=== PATIENT | female | born 1945 | race Caucasian/White ===

== ENCOUNTER 2017-10-01 00:28 | Day surgery (SDC) | payer MEDICARE, OTHER, SELFPAY ==
[~2017-10-01 00:28] MED LIST: ACET325 PO; ALBU.083IS IH; ALBU3IS INH; ALBU90OI INH; ALPR1; AMLO5 PO; ASPI325 PO; ASPI81CH PO; ASPI81EC PO; ATOR10; ATOR10 PO; AVINZA PO; AZIT500 PO; Arava10 MG PO; Aspercreme 1035.4 GM TOP; Aspir 8181 MG PO; BENADRYL25 MG PO; BENZ100A PO; BISA5EC PO; CALCAVITD PO; CALCIT950 PO; CALCIUM 600 +1 EAC5 PO; CARB200 PO; CARV3.125 PO; CARV6.25 PO; CEPH500 PO; CETI10; CETI10 PO; CHOL10002 PO; CIPR500 PO; CONEST1.25 PO; CONSTULOSE PO; CYCL10; CYCL10 PO; DESV50; DESV50 PO; DEXL60CA3 PO; DOCU100; DOCU100 PO; EFFEXOR; FAMO20 PO; FLUSAL5005 IH; FURO20 PO; FURO40 PO; FURO80 PO; Flonase 0.05% N16 GM; HUMIRA; HYDACE10B; HYDACE10B PO; HYDACE5; HYDACE7.5; HYDHOMSY PO; HYDMOR4; HYDMOR8 PO; IPRAIS NEB; IPRAOI INH; ISOMON20; ISOMON30 PO; Isosorbide Mono30 MG PO; KAPIDEX; KAPIDEX PO; LANS30EC; LANS30EC PO; LAVAP17G PO; LEFL20 PO; LEUC5; LEUC5 PO; LEVA1.25; LEVSOD100; LEVSOD112 PO; LEVSOD125 PO; LEVSOD88; LEVSOD88 PO; LIOT25; LIOT25 PO; LORA1; LOSA50; LOSA50 PO; MAGCIT300 PO; MELATONIN10 MG PO; MELO7.5 PO; MEPE50; METHOTREXATE; METO10 PO; METR500 PO; METTREX2.5; MONT10T PO; MORP30 PO; MORP30ER PO; MORP60ER PO; MOVANTIK25 MG PO; Milk Of Ma400 MG/5 M PO; NIFE30ER; NIFE30ER PO; NIFE60ER PO; NITR.4SL; NITR.4SL SL; NITR100CA PO; Norco 10-325 T1 EACH PO; ONDA4ODT PO; ONDA8 PO; ONDA8ODT MM; OXYACE5T PO; OXYC20ER PO; OXYC5 PO; OXYGEN 2L AT NIGHT; POLY17UD PO; POTA10T PO; POTASSIUM; POTCHL10ER PO; POTCHL20ER PO; PRAM.125; PRAM.125 PO; PRAV20 PO; PRED10 PO; PRED20 PO; PRED5 PO; PROM25 PO; PSEU120ER PO; RELISTOR8 MG/0.4 M SQ; REMACADE; REMICADE; RXHYDMOR2 PO; RXONDA4ODT MM; RXPROM25 PO; RXTRAM50 PO; Remicade100 MG IV; SPIR25; SPIR25 PO; SPIR50 PO; SULTRIDS PO; Synthroid112 MCG PO; Synthroid25 MCG PO; TRIE10TC TOP; Tegretol Xr400 MG PO; VENL150ER PO; VENL75; VITAMIN D35000 UNI1 PO; Ventolin Soln3 ML INH; Ventolin5 MG/1 ML IH; Zithromax250 MG PO; Zofran Odt4 MG PO; [UNRECOGNIZED DRUG - OTHER]; [UNRECOGNIZED DRUG - OTHER]; [UNRECOGNIZED DRUG - OTHER]; [UNRECOGNIZED DRUG - OTHER] PO; [UNRECOGNIZED DRUG - OTHER] PO
[2017-10-01 14:05] LABS: BASOPHILS ABSOLUTE AUTO 0.02 K/mm3 (0.00-0.23); BASOPHILS PERCENT AUTO 0 % (0-2); EOSINOPHILS ABSOLUTE AUTO 0.24 K/mm3 (0.00-0.68); EOSINOPHILS PERCENT AUTO 4 % (0-6); Hematocrit 35.5 % (33.0-51.0); Hemoglobin 11.7 g/dL (11.5-16.0); IMMATURE GRAN ABSOLUTE AUTO 0.01 K/mm3 (0.00-0.10); IMMATURE GRAN PERCENT AUTO 0 % (0-1); LYMPHOCYTES ABSOLUTE AUTO 1.75 K/mm3 (0.84-5.20); LYMPHOCYTES PERCENT AUTO 27 % (21-46); MONOCYTES ABSOLUTE AUTO 0.54 K/mm3 (0.16-1.47); MONOCYTES PERCENT AUTO 8 % (4-13); Mean Corpuscular HGB 31.5 pg (26.0-34.0); Mean Corpuscular Volume 96 fL (80-100); Mean Platelet Volume 9.3 fL (9.1-12.4); NEUTROPHILS ABSOLUTE AUTO 3.93 K/mm3 (1.96-9.15); NEUTROPHILS PERCENT AUTO 61 % (41-73); Platelet Count 225 K/mm3 (150-400); RDW Coefficient Variation 12.8 % (11.7-14.2); RDW Standard Deviation 44.7 fL (35.1-46.3); Red Blood Cell Count 3.71 M/mm3 (3.80-5.20); White Blood Cell Count 6.49 K/mm3 (4.00-11.30)
[2017-10-10] MEDS ORDERED: CITRATE OF MAG296 ML PO
== END 2017-10-01 15:47 | disposition home or self-care (01) ==
LOC: ATC 00:28
PROVIDERS: Internal Medicine Rheumatology
DX: M06.9 Rheumatoid arthritis, unspecified (principal); F32.9 Major depressive disorder, single episode, unspecified; E78.5 Hyperlipidemia, unspecified; I10 Essential (primary) hypertension; E03.9 Hypothyroidism, unspecified; J45.909 Unspecified asthma, uncomplicated; G47.33 Obstructive sleep apnea (adult) (pediatric); E66.01 Morbid (severe) obesity due to excess calories; I25.10 Atherosclerotic heart disease of native coronary artery without angina pectoris
CPT/HCPCS: 84450; 85025; 85651; 96413; J1642; J7050; Q5102-ZB

== ENCOUNTER 2017-10-10 23:08 | Emergency (ER) | payer MEDICARE, OTHER, SELFPAY ==
[~2017-10-10] VITALS: Ht 154.9 cm; Wt 113.4 kg
[~2017-10-10 23:08] MED LIST changes: +CITRATE OF MAG296 ML PO
== END 2017-10-11 00:45 | disposition home or self-care (01) ==
LOC: ER 23:08
DX: K59.00 Constipation, unspecified (principal); I11.0 Hypertensive heart disease with heart failure; I50.9 Heart failure, unspecified; E03.9 Hypothyroidism, unspecified; J44.9 Chronic obstructive pulmonary disease, unspecified; E66.01 Morbid (severe) obesity due to excess calories; Z87.891 Personal history of nicotine dependence; Z88.0 Allergy status to penicillin; Z88.5 Allergy status to narcotic agent; Z88.1 Allergy status to other antibiotic agents; Z88.2 Allergy status to sulfonamides; Z79.899 Other long term (current) drug therapy; Z79.82 Long term (current) use of aspirin
CPT/HCPCS: 99283

== ENCOUNTER 2017-10-29 00:37 | Day surgery (SDC) | payer MEDICARE, OTHER ==
[2017-10-29 14:24] LABS: BASOPHILS ABSOLUTE AUTO 0.07 K/mm3 (0.00-0.23); BASOPHILS PERCENT AUTO 1 % (0-2); EOSINOPHILS ABSOLUTE AUTO 0.24 K/mm3 (0.00-0.68); EOSINOPHILS PERCENT AUTO 4 % (0-6); Hematocrit 37.1 % (33.0-51.0); IMMATURE GRAN ABSOLUTE AUTO 0.01 K/mm3 (0.00-0.10); IMMATURE GRAN PERCENT AUTO 0 % (0-1); LYMPHOCYTES ABSOLUTE AUTO 2.05 K/mm3 (0.84-5.20); LYMPHOCYTES PERCENT AUTO 30 % (21-46); MONOCYTES ABSOLUTE AUTO 0.67 K/mm3 (0.16-1.47); MONOCYTES PERCENT AUTO 10 % (4-13); Mean Corpuscular HGB 30.8 pg (26.0-34.0); Mean Corpuscular HGB Conc 32.3 g/dL (31.5-36.5); Mean Corpuscular Volume 95 fL (80-100); Mean Platelet Volume 9.4 fL (9.1-12.4); NEUTROPHILS ABSOLUTE AUTO 3.73 K/mm3 (1.96-9.15); NEUTROPHILS PERCENT AUTO 55 % (41-73); Platelet Count 225 K/mm3 (150-400); RDW Coefficient Variation 12.1 % (11.7-14.2); RDW Standard Deviation 42.3 fL (35.1-46.3); Red Blood Cell Count 3.89 M/mm3 (3.80-5.20); White Blood Cell Count 6.77 K/mm3 (4.00-11.30)
== END 2017-10-29 15:56 | disposition home or self-care (01) ==
LOC: ATC 00:37
PROVIDERS: Internal Medicine Rheumatology
DX: M06.9 Rheumatoid arthritis, unspecified (principal); M05.10 Rheumatoid lung disease with rheumatoid arthritis of unspecified site; F32.9 Major depressive disorder, single episode, unspecified; E78.5 Hyperlipidemia, unspecified; E03.9 Hypothyroidism, unspecified; J45.909 Unspecified asthma, uncomplicated; E66.01 Morbid (severe) obesity due to excess calories; G47.33 Obstructive sleep apnea (adult) (pediatric); I25.10 Atherosclerotic heart disease of native coronary artery without angina pectoris; I11.0 Hypertensive heart disease with heart failure; I50.9 Heart failure, unspecified
CPT/HCPCS: 84450; 85025; 85651; 96413; 96415; J1642; J7050; Q5102-ZB

== ENCOUNTER 2017-11-24 00:19 | Day surgery (SDC) | payer MEDICARE, SELFPAY ==
[2017-11-24 14:14] LABS: BASOPHILS ABSOLUTE AUTO 0.05 K/mm3 (0.00-0.23); BASOPHILS PERCENT AUTO 1 % (0-2); EOSINOPHILS ABSOLUTE AUTO 0.36 K/mm3 (0.00-0.68); EOSINOPHILS PERCENT AUTO 5 % (0-6); Hemoglobin 11.8 g/dL (11.5-16.0); IMMATURE GRAN ABSOLUTE AUTO 0.03 K/mm3 (0.00-0.10); IMMATURE GRAN PERCENT AUTO 0 % (0-1); LYMPHOCYTES ABSOLUTE AUTO 1.96 K/mm3 (0.84-5.20); LYMPHOCYTES PERCENT AUTO 26 % (21-46); MONOCYTES ABSOLUTE AUTO 0.77 K/mm3 (0.16-1.47); MONOCYTES PERCENT AUTO 10 % (4-13); Mean Corpuscular HGB 30.4 pg (26.0-34.0); Mean Corpuscular HGB Conc 31.9 g/dL (31.5-36.5); Mean Corpuscular Volume 95 fL (80-100); NEUTROPHILS PERCENT AUTO 58 % (41-73); Platelet Count 222 K/mm3 (150-400); RDW Coefficient Variation 12.1 % (11.7-14.2); RDW Standard Deviation 42.3 fL (35.1-46.3); Red Blood Cell Count 3.88 M/mm3 (3.80-5.20); White Blood Cell Count 7.57 K/mm3 (4.00-11.30)
== END 2017-11-24 15:54 | disposition home or self-care (01) ==
LOC: ATC 00:19
PROVIDERS: Internal Medicine Rheumatology
DX: M06.9 Rheumatoid arthritis, unspecified (principal); M05.10 Rheumatoid lung disease with rheumatoid arthritis of unspecified site; F32.9 Major depressive disorder, single episode, unspecified; E78.5 Hyperlipidemia, unspecified; E03.9 Hypothyroidism, unspecified; J45.909 Unspecified asthma, uncomplicated; I11.0 Hypertensive heart disease with heart failure; I50.30 Unspecified diastolic (congestive) heart failure
CPT/HCPCS: 84450; 85025; 85651; 96413; J1642; J7050; Q5102-ZB

== ENCOUNTER 2017-12-22 00:25 | Day surgery (SDC) | payer MEDICARE, SELFPAY ==
[2017-12-22 15:04] LABS: BASOPHILS ABSOLUTE AUTO 0.06 K/mm3 (0.00-0.23); BASOPHILS PERCENT AUTO 1 % (0-2); EOSINOPHILS ABSOLUTE AUTO 0.29 K/mm3 (0.00-0.68); EOSINOPHILS PERCENT AUTO 4 % (0-6); Hemoglobin 11.9 g/dL (11.5-16.0); IMMATURE GRAN ABSOLUTE AUTO 0.01 K/mm3 (0.00-0.10); IMMATURE GRAN PERCENT AUTO 0 % (0-1); LYMPHOCYTES ABSOLUTE AUTO 2.01 K/mm3 (0.84-5.20); LYMPHOCYTES PERCENT AUTO 29 % (21-46); MONOCYTES ABSOLUTE AUTO 0.71 K/mm3 (0.16-1.47); MONOCYTES PERCENT AUTO 10 % (4-13); Mean Corpuscular HGB 30.8 pg (26.0-34.0); Mean Corpuscular HGB Conc 32.2 g/dL (31.5-36.5); Mean Corpuscular Volume 96 fL (80-100); Mean Platelet Volume 9.7 fL (9.1-12.4); NEUTROPHILS ABSOLUTE AUTO 3.96 K/mm3 (1.96-9.15); NEUTROPHILS PERCENT AUTO 56 % (41-73); Platelet Count 248 K/mm3 (150-400); RDW Coefficient Variation 12.8 % (11.7-14.2); Red Blood Cell Count 3.86 M/mm3 (3.80-5.20); White Blood Cell Count 7.04 K/mm3 (4.00-11.30)
== END 2017-12-22 16:19 | disposition home or self-care (01) ==
LOC: ATC 00:25
PROVIDERS: Internal Medicine Rheumatology
DX: M06.9 Rheumatoid arthritis, unspecified (principal); M05.10 Rheumatoid lung disease with rheumatoid arthritis of unspecified site; E78.5 Hyperlipidemia, unspecified; F32.9 Major depressive disorder, single episode, unspecified; I10 Essential (primary) hypertension; E03.9 Hypothyroidism, unspecified; E66.01 Morbid (severe) obesity due to excess calories
CPT/HCPCS: 84450; 85025; 85651; 96413; 96415; J1642; J7050; Q5103

== ENCOUNTER 2018-01-28 09:37 | Day surgery (SDC) | payer MEDICARE ==
[~2018-01-28] VITALS: Ht 154.9 cm; Wt 114.1 kg
== END 2018-01-28 12:29 | disposition home or self-care (01) ==
LOC: ORSCSDS 09:37
PROVIDERS: Internal Medicine Gastroenterology
PROC: 0DBL8ZX Excision of Transverse Colon, Via Natural or Artificial Opening Endoscopic, Diagnostic (ICD-10-PCS; principal; 2018-01-28 11:00)
DX: Z86.010 Personal history of colon polyps (principal); K62.5 Hemorrhage of anus and rectum; D12.3 Benign neoplasm of transverse colon; K57.30 Diverticulosis of large intestine without perforation or abscess without bleeding; K64.8 Other hemorrhoids; I10 Essential (primary) hypertension; E03.9 Hypothyroidism, unspecified; K21.9 Gastro-esophageal reflux disease without esophagitis; G47.33 Obstructive sleep apnea (adult) (pediatric); J44.9 Chronic obstructive pulmonary disease, unspecified; I25.10 Atherosclerotic heart disease of native coronary artery without angina pectoris; Z87.891 Personal history of nicotine dependence; E66.01 Morbid (severe) obesity due to excess calories; Z68.42 Body mass index [BMI] 45.0-49.9, adult; Z79.82 Long term (current) use of aspirin; Z79.899 Other long term (current) drug therapy
CPT/HCPCS: 88305; J7120

== ENCOUNTER 2018-02-21 00:13 | Day surgery (SDC) | payer MEDICARE ==
[2018-02-21 14:37] LABS: BASOPHILS ABSOLUTE AUTO 0.04 K/mm3 (0.00-0.23); BASOPHILS PERCENT AUTO 1 % (0-2); EOSINOPHILS ABSOLUTE AUTO 0.04 K/mm3 (0.00-0.68); EOSINOPHILS PERCENT AUTO 1 % (0-6); Hematocrit 38.4 % (33.0-51.0); Hemoglobin 12.4 g/dL (11.5-16.0); IMMATURE GRAN ABSOLUTE AUTO 0.01 K/mm3 (0.00-0.10); IMMATURE GRAN PERCENT AUTO 0 % (0-1); LYMPHOCYTES ABSOLUTE AUTO 0.85 K/mm3 (0.84-5.20); LYMPHOCYTES PERCENT AUTO 15 % (21-46); MONOCYTES ABSOLUTE AUTO 0.12 K/mm3 (0.16-1.47); MONOCYTES PERCENT AUTO 2 % (4-13); Mean Corpuscular HGB 31.2 pg (26.0-34.0); Mean Corpuscular HGB Conc 32.3 g/dL (31.5-36.5); Mean Corpuscular Volume 97 fL (80-100); Mean Platelet Volume 9.9 fL (9.1-12.4); NEUTROPHILS ABSOLUTE AUTO 4.79 K/mm3 (1.96-9.15); NEUTROPHILS PERCENT AUTO 82 % (41-73); Platelet Count 234 K/mm3 (150-400); RDW Coefficient Variation 12.3 % (11.7-14.2); Red Blood Cell Count 3.98 M/mm3 (3.80-5.20); White Blood Cell Count 5.85 K/mm3 (4.00-11.30)
== END 2018-02-21 15:42 | disposition home or self-care (01) ==
LOC: ATC 00:13
PROVIDERS: Internal Medicine Rheumatology
DX: M06.9 Rheumatoid arthritis, unspecified (principal); M05.10 Rheumatoid lung disease with rheumatoid arthritis of unspecified site; E78.5 Hyperlipidemia, unspecified; I10 Essential (primary) hypertension; E03.9 Hypothyroidism, unspecified; J45.909 Unspecified asthma, uncomplicated; G47.33 Obstructive sleep apnea (adult) (pediatric)
CPT/HCPCS: 36591; 84450; 85025; 85651; J1642; J7050; Q5103

== ENCOUNTER 2018-02-28 07:16 | Emergency (ER) | payer MEDICARE, SELFPAY ==
[~2018-02-28] VITALS: Ht 152.4 cm; Wt 111.6 kg
[2018-02-28] MEDS ORDERED: NIFE60ER PO (07:38)
[2018-02-28] MEDS ORDERED: ATOR40TA PO (07:39)
[2018-02-28] MEDS ORDERED: ASPI81CH PO (07:39)
[2018-02-28] MEDS ORDERED: HYDR1TAB94 (07:40)
[2018-02-28] MEDS ORDERED: CARB200 PO (07:55)
[2018-02-28] MEDS ORDERED: LEVSOD125 PO (07:56)
[2018-02-28] MEDS ORDERED: ISOMON20 PO (07:57)
[2018-02-28] MEDS ORDERED: Remicade100 MG IV (07:59)
[2018-02-28] MEDS ORDERED: LOSA50 PO (07:59)
[2018-02-28] MEDS ORDERED: FURO80 PO (08:00)
[2018-02-28] MEDS ORDERED: SPIR25 PO (08:01)
[2018-02-28] MEDS ORDERED: PANT40 PO (08:02)
[2018-02-28] MEDS ORDERED: CARV6.25 PO (08:03)
[2018-02-28] MEDS ORDERED: GAVILAX17 GM PO (08:03)
[2018-02-28] MEDS ORDERED: AMLO5 PO (08:03)
[2018-02-28] MEDS ORDERED: PRAM.125 PO (08:04)
[2018-02-28] MEDS ORDERED: DESV50 PO (08:07)
[2018-02-28] MEDS ORDERED: Prednisone20 MG PO (09:10)
[2018-02-28] MEDS ORDERED: CYCL10 PO (09:10)
== END 2018-02-28 09:23 | disposition home or self-care (01) ==
LOC: ER 07:16
DX: M54.5 Low back pain (principal); Z88.8 Allergy status to other drugs, medicaments and biological substances; Z88.5 Allergy status to narcotic agent; Z88.1 Allergy status to other antibiotic agents; Z88.2 Allergy status to sulfonamides; Z79.899 Other long term (current) drug therapy; Z79.891 Long term (current) use of opiate analgesic; Z79.82 Long term (current) use of aspirin; E66.01 Morbid (severe) obesity due to excess calories; I11.0 Hypertensive heart disease with heart failure; I50.9 Heart failure, unspecified; E03.9 Hypothyroidism, unspecified; J44.9 Chronic obstructive pulmonary disease, unspecified; Z87.891 Personal history of nicotine dependence
CPT/HCPCS: 73502; 99283

== ENCOUNTER 2018-03-03 12:29 | Emergency (ER) | payer MEDICARE, SELFPAY ==
[~2018-03-03] VITALS: Ht 154.9 cm; Wt 112.5 kg
[~2018-03-03 12:29] MED LIST changes: +ATOR40TA PO; +GAVILAX17 GM PO; +HYDR1TAB94; +ISOMON20 PO; +PANT40 PO; +Prednisone20 MG PO
[2018-03-03 13:18] LABS: Hematocrit 35.5 % (33.0-51.0); Hemoglobin 11.6 g/dL (11.5-16.0); Mean Corpuscular HGB 31.6 pg (26.0-34.0); Mean Corpuscular HGB Conc 32.7 g/dL (31.5-36.5); Mean Corpuscular Volume 97 fL (80-100); Mean Platelet Volume 9.1 fL (9.1-12.4); Platelet Count 217 K/mm3 (150-400); RDW Coefficient Variation 12.9 % (11.7-14.2); RDW Standard Deviation 46.5 fL (35.1-46.3); Red Blood Cell Count 3.67 M/mm3 (3.80-5.20); White Blood Cell Count 6.73 K/mm3 (4.00-11.30)
[2018-03-03 13:33] LABS: Anion Gap 8 mmol/L (6-16); Blood Urea Nitrogen 27 mg/dL (8-24); Bun/Creatinine Ratio 34.4 (12.0-20.0); CO2, Blood 28 mmol/L (21-32); Calcium, Blood 8.5 mg/dL (8.5-10.1); Chloride, Blood 103 mmol/L (98-108); Creatinine, Blood 0.79 mg/dL (0.40-1.00); Glomerular Filtration Rate >60 (60-); Glucose, Blood 113 mg/dL (70-99); Potassium, Blood 5.1 mmol/L (3.5-5.5); Sodium, Blood 139 mmol/L (136-145)
[2018-03-03] MEDS ORDERED: Percocet 5-3251 EACH PO (13:51)
== END 2018-03-03 14:38 | disposition home or self-care (01) ==
LOC: ER 12:29
PROVIDERS: Emergency Medicine
DX: M54.5 Low back pain (principal); G89.29 Other chronic pain; E66.01 Morbid (severe) obesity due to excess calories; I11.0 Hypertensive heart disease with heart failure; I50.9 Heart failure, unspecified; E03.9 Hypothyroidism, unspecified; J44.9 Chronic obstructive pulmonary disease, unspecified; Z87.891 Personal history of nicotine dependence
CPT/HCPCS: 36415; 72100; 80048; 81000; 85027; 96374; 96376; 99284; J3010

== ENCOUNTER 2018-03-12 08:27 | Emergency (ER) | payer MEDICARE, SELFPAY ==
[~2018-03-12] VITALS: Ht 152.4 cm; Wt 112.5 kg
[~2018-03-12 08:27] MED LIST changes: +Percocet 5-3251 EACH PO
[2018-03-12] MEDS ORDERED: Percocet 5-3251 EACH PO (10:05)
[2018-03-12] MEDS ORDERED: Cyclobenzaprine5 MG PO (10:41)
== END 2018-03-12 11:08 | disposition home or self-care (01) ==
LOC: ER 08:27
DX: M54.5 Low back pain (principal); I11.0 Hypertensive heart disease with heart failure; I50.9 Heart failure, unspecified; E03.9 Hypothyroidism, unspecified; J44.9 Chronic obstructive pulmonary disease, unspecified; Z88.8 Allergy status to other drugs, medicaments and biological substances; Z88.5 Allergy status to narcotic agent; Z91.09 Other allergy status, other than to drugs and biological substances; Z88.1 Allergy status to other antibiotic agents; Z79.82 Long term (current) use of aspirin; Z88.2 Allergy status to sulfonamides; Z79.899 Other long term (current) drug therapy
CPT/HCPCS: 96372; 99283; J1885

== ENCOUNTER 2018-03-23 00:10 | Day surgery (SDC) | payer MEDICARE, SELFPAY ==
[~2018-03-23 00:10] MED LIST changes: +Cyclobenzaprine5 MG PO
== END 2018-03-23 22:38 | disposition home or self-care (01) ==
LOC: ATC 00:10
DX: M06.9 Rheumatoid arthritis, unspecified (principal); J45.909 Unspecified asthma, uncomplicated; K21.9 Gastro-esophageal reflux disease without esophagitis; G47.33 Obstructive sleep apnea (adult) (pediatric); I50.9 Heart failure, unspecified

== ENCOUNTER 2018-04-30 07:30 | Emergency (ER) | payer MEDICARE, SELFPAY ==
[~2018-04-30] VITALS: Ht 154.9 cm; Wt 114.8 kg
[2018-04-30] MEDS ORDERED: IBUP600 PO (07:48)
[2018-04-30] MEDS ORDERED: CYCL10 PO (10:17)
[2018-04-30] MEDS ORDERED: METPRE4DP PO (10:17)
[2018-04-30] MEDS ORDERED: Norco 5-325 Ta1 EACH PO (10:17)
== END 2018-04-30 10:30 | disposition home or self-care (01) ==
LOC: ER 07:30
DX: M54.16 Radiculopathy, lumbar region (principal); E66.01 Morbid (severe) obesity due to excess calories; I11.0 Hypertensive heart disease with heart failure; I50.9 Heart failure, unspecified; E03.9 Hypothyroidism, unspecified; J44.9 Chronic obstructive pulmonary disease, unspecified; Z68.42 Body mass index [BMI] 45.0-49.9, adult
CPT/HCPCS: 96374; 96375; 96376; 99283-25; J1100; J1170; J1885; J2405; J3360

== ENCOUNTER 2018-05-08 05:48 | Emergency (ER) | payer MEDICARE, SELFPAY ==
[~2018-05-08] VITALS: Ht 154.9 cm; Wt 113.4 kg
[~2018-05-08 05:48] MED LIST changes: +IBUP600 PO; +METPRE4DP PO; +Norco 5-325 Ta1 EACH PO
[2018-05-08] MEDS ORDERED: Norco 10-325 T1 EACH PO (07:18)
== END 2018-05-08 09:35 | disposition home or self-care (01) ==
LOC: ER 05:48
DX: M54.42 Lumbago with sciatica, left side (principal); G89.29 Other chronic pain; Z88.8 Allergy status to other drugs, medicaments and biological substances; Z88.5 Allergy status to narcotic agent; Z91.040 Latex allergy status; Z88.1 Allergy status to other antibiotic agents; Z88.2 Allergy status to sulfonamides; Z79.899 Other long term (current) drug therapy; Z79.82 Long term (current) use of aspirin; Z79.891 Long term (current) use of opiate analgesic; Z79.52 Long term (current) use of systemic steroids; E66.01 Morbid (severe) obesity due to excess calories; I11.0 Hypertensive heart disease with heart failure; I50.9 Heart failure, unspecified; E03.9 Hypothyroidism, unspecified; J44.9 Chronic obstructive pulmonary disease, unspecified; Z87.891 Personal history of nicotine dependence
CPT/HCPCS: 96372; 99283; J1885; J2550; J3010

== ENCOUNTER 2018-05-14 07:49 | Emergency (ER) | payer MEDICARE, SELFPAY ==
[~2018-05-14] VITALS: Ht 154.9 cm; Wt 112.9 kg
[2018-05-14 08:29] LABS: BASOPHILS ABSOLUTE AUTO 0.07 K/mm3 (0.00-0.23); BASOPHILS PERCENT AUTO 1 % (0-2); EOSINOPHILS ABSOLUTE AUTO 0.27 K/mm3 (0.00-0.68); EOSINOPHILS PERCENT AUTO 3 % (0-6); Hematocrit 37.3 % (33.0-51.0); Hemoglobin 12.5 g/dL (11.5-16.0); IMMATURE GRAN ABSOLUTE AUTO 0.04 K/mm3 (0.00-0.10); IMMATURE GRAN PERCENT AUTO 0 % (0-1); LYMPHOCYTES ABSOLUTE AUTO 0.95 K/mm3 (0.84-5.20); LYMPHOCYTES PERCENT AUTO 10 % (21-46); MONOCYTES ABSOLUTE AUTO 0.77 K/mm3 (0.16-1.47); MONOCYTES PERCENT AUTO 8 % (4-13); Mean Corpuscular HGB 31.8 pg (26.0-34.0); Mean Corpuscular HGB Conc 33.5 g/dL (31.5-36.5); Mean Corpuscular Volume 95 fL (80-100); Mean Platelet Volume 8.4 fL (9.1-12.4); NEUTROPHILS ABSOLUTE AUTO 7.78 K/mm3 (1.96-9.15); NEUTROPHILS PERCENT AUTO 79 % (41-73); Platelet Count 192 K/mm3 (150-400); RDW Coefficient Variation 12.6 % (11.7-14.2); RDW Standard Deviation 44.6 fL (35.1-46.3); Red Blood Cell Count 3.93 M/mm3 (3.80-5.20); White Blood Cell Count 9.88 K/mm3 (4.00-11.30)
[2018-05-14 08:50] LABS: Anion Gap 7 mmol/L (6-16); Blood Urea Nitrogen 10 mg/dL (8-24); Bun/Creatinine Ratio 14.7 (12.0-20.0); CO2, Blood 30 mmol/L (21-32); Calcium, Blood 8.8 mg/dL (8.5-10.1); Chloride, Blood 98 mmol/L (98-108); Creatinine, Blood 0.68 mg/dL (0.40-1.00); Glomerular Filtration Rate >60 (60-); Glucose, Blood 110 mg/dL (70-99); Potassium, Blood 3.7 mmol/L (3.5-5.5); Sodium, Blood 135 mmol/L (136-145)
[2018-05-14 10:23] LABS: Appearance, Urine Clear (Clear); Bilirubin, Urine Neg (Neg); Blood, Urine 4+ (Neg); Color, Urine Yellow (P-Yellow); Glucose Qualitative, Urine Neg (Neg); Ketones, Urine 2+ (Neg); Leukocyte Esterase, Urine Neg (Neg); Nitrite, Urine Neg (Neg); Protein, Urine 2+ (Neg); Specific Gravity, Urine 1.005 (1.003-1.022); Urobilinogen, Urine NORM (Normal)
[2018-05-14] MEDS ORDERED: Prednisone20 MG PO (10:27)
[2018-05-14] MEDS ORDERED: Pepcid20 MG PO (10:27)
[2018-05-14] MEDS ORDERED: CEPH500 PO (10:27)
[2018-05-14 10:34] LABS: White Blood Cells, Urine Not Seen /hpf (0-5)
[2018-05-14 10:35] LABS: Bacteria Not Seen /hpf; Squamous Epithelial Cells Few /hpf (Few)
== END 2018-05-14 12:19 | disposition home or self-care (01) ==
LOC: ER 07:49
PROVIDERS: Emergency Medicine
DX: J44.1 Chronic obstructive pulmonary disease with (acute) exacerbation (principal); J44.0 Chronic obstructive pulmonary disease with (acute) lower respiratory infection; J18.9 Pneumonia, unspecified organism; M54.30 Sciatica, unspecified side; I11.0 Hypertensive heart disease with heart failure; I50.9 Heart failure, unspecified; E03.9 Hypothyroidism, unspecified; Z88.8 Allergy status to other drugs, medicaments and biological substances; Z88.5 Allergy status to narcotic agent; Z91.048 Other nonmedicinal substance allergy status; Z88.1 Allergy status to other antibiotic agents; Z88.2 Allergy status to sulfonamides; Z79.899 Other long term (current) drug therapy; Z79.82 Long term (current) use of aspirin; Z87.891 Personal history of nicotine dependence
CPT/HCPCS: 36415; 71046; 80048; 81001; 83605; 85025; 94640; 96361; 96365; 96375; 99285-25; J0696; J2930; J7030

== ENCOUNTER 2018-05-24 00:11 | Emergency (ER) | payer MEDICARE, SELFPAY ==
[~2018-05-24] VITALS: Ht 154.9 cm; Wt 110.2 kg
[~2018-05-24 00:11] MED LIST changes: +Pepcid20 MG PO
[2018-05-24 00:54] LABS: BASOPHILS ABSOLUTE AUTO 0.08 K/mm3 (0.00-0.23); BASOPHILS PERCENT AUTO 1 % (0-2); EOSINOPHILS ABSOLUTE AUTO 0.31 K/mm3 (0.00-0.68); EOSINOPHILS PERCENT AUTO 4 % (0-6); Hematocrit 38.4 % (33.0-51.0); Hemoglobin 12.6 g/dL (11.5-16.0); IMMATURE GRAN ABSOLUTE AUTO 0.01 K/mm3 (0.00-0.10); IMMATURE GRAN PERCENT AUTO 0 % (0-1); LYMPHOCYTES ABSOLUTE AUTO 2.37 K/mm3 (0.84-5.20); LYMPHOCYTES PERCENT AUTO 31 % (21-46); MONOCYTES ABSOLUTE AUTO 0.91 K/mm3 (0.16-1.47); MONOCYTES PERCENT AUTO 12 % (4-13); Mean Corpuscular HGB 31.6 pg (26.0-34.0); Mean Corpuscular HGB Conc 32.8 g/dL (31.5-36.5); Mean Corpuscular Volume 96 fL (80-100); NEUTROPHILS PERCENT AUTO 53 % (41-73); Platelet Count 274 K/mm3 (150-400); RDW Coefficient Variation 12.6 % (11.7-14.2); RDW Standard Deviation 45.4 fL (35.1-46.3); Red Blood Cell Count 3.99 M/mm3 (3.80-5.20); White Blood Cell Count 7.78 K/mm3 (4.00-11.30)
[2018-05-24 01:12] LABS: Alanine Aminotransfer (ALT/SGP 37 U/L (12-78); Albumin, Blood 3.3 g/dL (3.4-5.0); Albumin/Globulin Ratio 0.8 (0.8-1.8); Alk Phos 100 U/L (50-136); Anion Gap 6 mmol/L (6-16); Aspartate Aminotrans (AST/SGOT 26 U/L (12-37); Bilirubin, Total 0.3 mg/dL (0.1-1.0); Blood Urea Nitrogen 18 mg/dL (8-24); Bun/Creatinine Ratio 24.5 (12.0-20.0); CO2, Blood 27 mmol/L (21-32); Calcium, Blood 8.3 mg/dL (8.5-10.1); Chloride, Blood 103 mmol/L (98-108); Creatinine, Blood 0.74 mg/dL (0.40-1.00); Globulin, Blood 3.9 g/dL (2.2-4.0); Glomerular Filtration Rate >60 (60-); Glucose, Blood 125 mg/dL (70-99); Potassium, Blood 4.1 mmol/L (3.5-5.5); Sodium, Blood 136 mmol/L (136-145); Total Protein, Blood 7.2 g/dL (6.4-8.2); Troponin I <0.015 ng/mL (0.000-0.040)
[2018-05-24 02:49] LABS: PCO2 Arterial 45.5 mmHg (35-45); PO2 Arterial 77.5 mmHg (80-100); pH Blood Arterial 7.42 (7.35-7.45)
== END 2018-05-24 04:33 | disposition home or self-care (01) ==
LOC: ER 00:11
PROVIDERS: Emergency Medicine
DX: M48.061 Spinal stenosis, lumbar region without neurogenic claudication (principal); Z88.8 Allergy status to other drugs, medicaments and biological substances; Z88.5 Allergy status to narcotic agent; Z88.1 Allergy status to other antibiotic agents; Z88.2 Allergy status to sulfonamides; Z79.899 Other long term (current) drug therapy; Z79.82 Long term (current) use of aspirin; Z79.891 Long term (current) use of opiate analgesic; Z79.52 Long term (current) use of systemic steroids; I11.0 Hypertensive heart disease with heart failure; I50.9 Heart failure, unspecified; E03.9 Hypothyroidism, unspecified; E66.01 Morbid (severe) obesity due to excess calories
CPT/HCPCS: 36415; 36600; 71046; 80053; 82803; 84484; 85025; 93005; 93010; 94640; 99285-25

== ENCOUNTER 2018-09-23 01:25 | Day surgery (SDC) | payer MEDICARE, OTHER ==
[2018-09-23 09:56] LABS: BASOPHILS ABSOLUTE AUTO 0.08 K/mm3 (0.00-0.23); BASOPHILS PERCENT AUTO 1 % (0-2); EOSINOPHILS PERCENT AUTO 5 % (0-6); Hematocrit 36.7 % (33.0-51.0); Hemoglobin 11.5 g/dL (11.5-16.0); IMMATURE GRAN ABSOLUTE AUTO 0.01 K/mm3 (0.00-0.10); IMMATURE GRAN PERCENT AUTO 0 % (0-1); LYMPHOCYTES ABSOLUTE AUTO 1.84 K/mm3 (0.84-5.20); LYMPHOCYTES PERCENT AUTO 32 % (21-46); MONOCYTES ABSOLUTE AUTO 0.55 K/mm3 (0.16-1.47); MONOCYTES PERCENT AUTO 10 % (4-13); Mean Corpuscular HGB 30.3 pg (26.0-34.0); Mean Corpuscular HGB Conc 31.3 g/dL (31.5-36.5); Mean Corpuscular Volume 97 fL (80-100); Mean Platelet Volume 9.4 fL (9.1-12.4); NEUTROPHILS ABSOLUTE AUTO 2.95 K/mm3 (1.96-9.15); NEUTROPHILS PERCENT AUTO 52 % (41-73); Platelet Count 233 K/mm3 (150-400); RDW Coefficient Variation 13.7 % (11.7-14.2); RDW Standard Deviation 48.8 fL (35.1-46.3); White Blood Cell Count 5.73 K/mm3 (4.00-11.30)
[2018-09-23 10:10] LABS: Alanine Aminotransfer (ALT/SGP 25 U/L (12-78); Albumin, Blood 3.5 g/dL (3.4-5.0); Albumin/Globulin Ratio 0.9 (0.8-1.8); Alk Phos 118 U/L (50-136); Anion Gap 5 mmol/L (6-16); Aspartate Aminotrans (AST/SGOT 12 U/L (12-37); Bilirubin, Total 0.2 mg/dL (0.1-1.0); Blood Urea Nitrogen 22 mg/dL (8-24); Bun/Creatinine Ratio 30.6 (12.0-20.0); CO2, Blood 31 mmol/L (21-32); Calcium, Blood 8.1 mg/dL (8.5-10.1); Chloride, Blood 103 mmol/L (98-108); Creatinine, Blood 0.72 mg/dL (0.40-1.00); Globulin, Blood 3.8 g/dL (2.2-4.0); Glomerular Filtration Rate >60 (60-); Glucose, Blood 103 mg/dL (70-99); Potassium, Blood 3.9 mmol/L (3.5-5.5); Sodium, Blood 139 mmol/L (136-145); Total Protein, Blood 7.3 g/dL (6.4-8.2)
== END 2018-09-23 11:30 | disposition home or self-care (01) ==
LOC: ATC 01:25
PROVIDERS: Internal Medicine Rheumatology
DX: M06.9 Rheumatoid arthritis, unspecified (principal)
CPT/HCPCS: 80053; 85025; 85651; 96413; J1642; J7050; Q5103

== ENCOUNTER 2018-10-19 00:07 | Day surgery (SDC) | payer MEDICARE, OTHER ==
[2018-10-19 08:32] LABS: BASOPHILS ABSOLUTE AUTO 0.06 K/mm3 (0.00-0.23); BASOPHILS PERCENT AUTO 1 % (0-2); EOSINOPHILS ABSOLUTE AUTO 0.26 K/mm3 (0.00-0.68); EOSINOPHILS PERCENT AUTO 5 % (0-6); Hematocrit 37.5 % (33.0-51.0); Hemoglobin 11.9 g/dL (11.5-16.0); IMMATURE GRAN ABSOLUTE AUTO 0.01 K/mm3 (0.00-0.10); IMMATURE GRAN PERCENT AUTO 0 % (0-1); LYMPHOCYTES ABSOLUTE AUTO 1.82 K/mm3 (0.84-5.20); LYMPHOCYTES PERCENT AUTO 32 % (21-46); MONOCYTES ABSOLUTE AUTO 0.54 K/mm3 (0.16-1.47); MONOCYTES PERCENT AUTO 10 % (4-13); Mean Corpuscular HGB 30.3 pg (26.0-34.0); Mean Corpuscular HGB Conc 31.7 g/dL (31.5-36.5); Mean Corpuscular Volume 95 fL (80-100); Mean Platelet Volume 9.4 fL (9.1-12.4); NEUTROPHILS PERCENT AUTO 53 % (41-73); Platelet Count 238 K/mm3 (150-400); RDW Standard Deviation 49.4 fL (35.1-46.3); Red Blood Cell Count 3.93 M/mm3 (3.80-5.20); White Blood Cell Count 5.69 K/mm3 (4.00-11.30)
[2018-10-19 08:52] LABS: Alanine Aminotransfer (ALT/SGP 20 U/L (12-78); Albumin, Blood 3.7 g/dL (3.4-5.0); Albumin/Globulin Ratio 0.9 (0.8-1.8); Alk Phos 112 U/L (50-136); Anion Gap 5 mmol/L (6-16); Aspartate Aminotrans (AST/SGOT 13 U/L (12-37); Bilirubin, Total 0.4 mg/dL (0.1-1.0); Blood Urea Nitrogen 28 mg/dL (8-24); Bun/Creatinine Ratio 36.3 (12.0-20.0); CO2, Blood 31 mmol/L (21-32); Calcium, Blood 8.6 mg/dL (8.5-10.1); Chloride, Blood 100 mmol/L (98-108); Creatinine, Blood 0.77 mg/dL (0.40-1.00); Globulin, Blood 3.9 g/dL (2.2-4.0); Glomerular Filtration Rate >60 (60-); Glucose, Blood 104 mg/dL (70-99); Potassium, Blood 4.4 mmol/L (3.5-5.5); Sodium, Blood 136 mmol/L (136-145); Total Protein, Blood 7.6 g/dL (6.4-8.2)
== END 2018-10-19 10:20 | disposition home or self-care (01) ==
LOC: ATC 00:07
PROVIDERS: Internal Medicine Rheumatology
DX: M06.9 Rheumatoid arthritis, unspecified (principal); Z88.8 Allergy status to other drugs, medicaments and biological substances; Z79.82 Long term (current) use of aspirin; Z79.899 Other long term (current) drug therapy
CPT/HCPCS: 80053; 85025; 85651; 96413; J1642; J7050; Q5103

== ENCOUNTER 2018-11-23 00:37 | Day surgery (SDC) | payer MEDICARE, OTHER | END 2018-11-23 12:00 | disposition home or self-care (01) | LOC: ATC 00:37 | DX: M06.9 Rheumatoid arthritis, unspecified (principal) | CPT/HCPCS: 96413; 85651; 85025; 80053; J1642; J7050; Q5103 ==

== ENCOUNTER 2019-01-28 21:38 | Emergency (ER) | payer MEDICARE, OTHER ==
[~2019-01-28] VITALS: Ht 154.9 cm; Wt 115.7 kg
[2019-01-29 01:51] LABS: Source, Urine Clean Catch
[2019-01-29 02:00] LABS: Appearance, Urine Clear (Clear); Bilirubin, Urine Neg (Neg); Blood, Urine 2+ (Neg); Color, Urine Yellow (P-Yellow); Glucose Qualitative, Urine Neg (Neg); Ketones, Urine Neg (Neg); Leukocyte Esterase, Urine 1+ (Neg); Nitrite, Urine Neg (Neg); Protein, Urine Neg (Neg); Specific Gravity, Urine 1.015 (1.003-1.022); Urobilinogen, Urine NORM (Normal)
[2019-01-29 02:06] LABS: Bacteria Mod /hpf; Mucus Light (0-Heavy); Squamous Epithelial Cells Few /hpf (Few); White Blood Cells, Urine 0-2 /hpf (0-5)
[2019-01-29] MEDS ORDERED: HYDMOR2 PO (02:08)
== END 2019-01-29 02:43 | disposition home or self-care (01) ==
LOC: ER 21:38
PROVIDERS: Emergency Medicine
DX: M54.5 Low back pain (principal); G89.29 Other chronic pain; Z88.8 Allergy status to other drugs, medicaments and biological substances; Z88.5 Allergy status to narcotic agent; Z88.1 Allergy status to other antibiotic agents; Z88.2 Allergy status to sulfonamides; Z79.899 Other long term (current) drug therapy; Z79.82 Long term (current) use of aspirin; I11.0 Hypertensive heart disease with heart failure; I50.9 Heart failure, unspecified; E03.9 Hypothyroidism, unspecified; J44.9 Chronic obstructive pulmonary disease, unspecified
CPT/HCPCS: 51798; 72100; 81001; 87086; 96374; 96376; 99284-25; A9270-GY; J1170

== ENCOUNTER 2019-02-02 20:52 | Emergency (ER) | payer MEDICARE, OTHER ==
[~2019-02-02] VITALS: Ht 154.9 cm; Wt 113.8 kg
[~2019-02-02 20:52] MED LIST changes: +HYDMOR2 PO
[2019-02-02] MEDS ORDERED: ASPI81CH PO (21:08)
[2019-02-02] MEDS ORDERED: ATOR40TA PO (21:08)
[2019-02-02] MEDS ORDERED: CYCL10 PO (21:09)
[2019-02-02] MEDS ORDERED: DESV50 PO (21:09)
[2019-02-02] MEDS ORDERED: CARB200ER PO (21:09)
[2019-02-02] MEDS ORDERED: CARV6.25 PO (21:09)
[2019-02-02] MEDS ORDERED: INFLECTRA100 MG IV (21:10)
[2019-02-02] MEDS ORDERED: IBUP800 (21:10)
[2019-02-02] MEDS ORDERED: Norco 10-325 T1 EACH PO (21:10)
[2019-02-02] MEDS ORDERED: FURO80 PO (21:10)
[2019-02-02] MEDS ORDERED: LEFL20 PO (21:11)
[2019-02-02] MEDS ORDERED: Isosorbide Mono30 MG PO (21:11)
[2019-02-02] MEDS ORDERED: Atrovent Inha12.9 GM INH (21:11)
[2019-02-02] MEDS ORDERED: LEVSOD137 PO (21:11)
[2019-02-02] MEDS ORDERED: LIOT5 PO (21:12)
[2019-02-02] MEDS ORDERED: NIFE60ER PO (21:12)
[2019-02-02] MEDS ORDERED: PANT40 PO (21:12)
[2019-02-02] MEDS ORDERED: PRAM.125 PO (21:12)
[2019-02-02] MEDS ORDERED: LOSA50 PO (21:12)
[2019-02-02] MEDS ORDERED: SPIR25 PO (21:13)
[2019-02-02 21:57] LABS: BASOPHILS ABSOLUTE AUTO 0.06 K/mm3 (0.00-0.23); BASOPHILS PERCENT AUTO 1 % (0-2); EOSINOPHILS ABSOLUTE AUTO 0.28 K/mm3 (0.00-0.68); EOSINOPHILS PERCENT AUTO 4 % (0-6); Hematocrit 38.9 % (33.0-51.0); Hemoglobin 12.4 g/dL (11.5-16.0); IMMATURE GRAN ABSOLUTE AUTO 0.01 K/mm3 (0.00-0.10); IMMATURE GRAN PERCENT AUTO 0 % (0-1); LYMPHOCYTES ABSOLUTE AUTO 1.79 K/mm3 (0.84-5.20); LYMPHOCYTES PERCENT AUTO 27 % (21-46); MONOCYTES ABSOLUTE AUTO 0.73 K/mm3 (0.16-1.47); MONOCYTES PERCENT AUTO 11 % (4-13); Mean Corpuscular HGB 31.6 pg (26.0-34.0); Mean Corpuscular HGB Conc 31.9 g/dL (31.5-36.5); Mean Corpuscular Volume 99 fL (80-100); Mean Platelet Volume 9.2 fL (9.1-12.4); NEUTROPHILS ABSOLUTE AUTO 3.79 K/mm3 (1.96-9.15); NEUTROPHILS PERCENT AUTO 57 % (41-73); Platelet Count 204 K/mm3 (150-400); RDW Coefficient Variation 12.7 % (11.7-14.2); RDW Standard Deviation 46.4 fL (35.1-46.3); Red Blood Cell Count 3.93 M/mm3 (3.80-5.20); White Blood Cell Count 6.66 K/mm3 (4.00-11.30)
[2019-02-02 22:17] LABS: Alanine Aminotransfer (ALT/SGP 27 U/L (12-78); Albumin, Blood 3.5 g/dL (3.4-5.0); Albumin/Globulin Ratio 0.9 (0.8-1.8); Alk Phos 106 U/L (50-136); Anion Gap 6 mmol/L (6-16); Aspartate Aminotrans (AST/SGOT 17 U/L (12-37); Bilirubin, Total 0.3 mg/dL (0.1-1.0); Blood Urea Nitrogen 21 mg/dL (8-24); CO2, Blood 29 mmol/L (21-32); Calcium, Blood 8.5 mg/dL (8.5-10.1); Chloride, Blood 104 mmol/L (98-108); Creatinine, Blood 0.84 mg/dL (0.40-1.00); Globulin, Blood 3.8 g/dL (2.2-4.0); Glomerular Filtration Rate >60 (60-); Glucose, Blood 103 mg/dL (70-99); Potassium, Blood 4.2 mmol/L (3.5-5.5); Sodium, Blood 139 mmol/L (136-145); Total Protein, Blood 7.3 g/dL (6.4-8.2)
[2019-02-06] MEDS ORDERED: POLYETHYLENE GLY1 GM (12:37)
[2019-02-06] MEDS ORDERED: METPRE4DP PO (16:21)
== END 2019-02-03 00:13 | disposition home or self-care (01) ==
LOC: ER 20:52
PROVIDERS: Physician Assistant
DX: G89.29 Other chronic pain (principal); M54.5 Low back pain; R60.0 Localized edema; I11.0 Hypertensive heart disease with heart failure; I50.9 Heart failure, unspecified; E03.9 Hypothyroidism, unspecified; J44.9 Chronic obstructive pulmonary disease, unspecified; Z88.2 Allergy status to sulfonamides; Z88.5 Allergy status to narcotic agent; Z79.899 Other long term (current) drug therapy
CPT/HCPCS: 36415; 80053; 83880; 85025; 93005; 93010; 96374; 96375; 99284-25; J1885; J1940; J2060; J2930

== ENCOUNTER 2019-02-15 00:36 | Day surgery (SDC) | payer MEDICARE, OTHER ==
[~2019-02-15 00:36] MED LIST changes: +Atrovent Inha12.9 GM INH; +CARB200ER PO; +IBUP800; +INFLECTRA100 MG IV; +LEVSOD137 PO; +LIOT5 PO; +POLYETHYLENE GLY1 GM
--- NOTE | 2019-02-15 09:00 | NUR ---
PT WITH TEMP 100.2, BP 197/114. CALL TO DR VELÁZQUEZ ABOUT TEMP AND BP AND SHE STATED TO SEND PT TO ER. PT VERY TEARFULL AND SAYS SHE IS IN ALOT OF PAIN D/T A BACK INJURY A FEW WEEKS AGO. PT STATES SHE HAS WENT TO ER 3 TIMES WITH NO ASSISTANCE FROM ER. SHE STATES SHE HAS FALLEN IN THE LAST FEW DAYS. PT TAKEN TO ER VIA WHEELCHAIR.
[2019-02-15 09:16] LABS: BASOPHILS ABSOLUTE AUTO 0.06 K/mm3 (0.00-0.23); BASOPHILS PERCENT AUTO 1 % (0-2); EOSINOPHILS ABSOLUTE AUTO 0.36 K/mm3 (0.00-0.68); EOSINOPHILS PERCENT AUTO 6 % (0-6); Hematocrit 39.7 % (33.0-51.0); Hemoglobin 12.6 g/dL (11.5-16.0); IMMATURE GRAN ABSOLUTE AUTO 0.01 K/mm3 (0.00-0.10); IMMATURE GRAN PERCENT AUTO 0 % (0-1); LYMPHOCYTES ABSOLUTE AUTO 1.09 K/mm3 (0.84-5.20); LYMPHOCYTES PERCENT AUTO 18 % (21-46); MONOCYTES ABSOLUTE AUTO 0.56 K/mm3 (0.16-1.47); MONOCYTES PERCENT AUTO 9 % (4-13); Mean Corpuscular HGB 31.1 pg (26.0-34.0); Mean Corpuscular HGB Conc 31.7 g/dL (31.5-36.5); Mean Corpuscular Volume 98 fL (80-100); Mean Platelet Volume 9.3 fL (9.1-12.4); NEUTROPHILS ABSOLUTE AUTO 3.92 K/mm3 (1.96-9.15); NEUTROPHILS PERCENT AUTO 65 % (41-73); Platelet Count 213 K/mm3 (150-400); RDW Coefficient Variation 12.7 % (11.7-14.2); RDW Standard Deviation 45.8 fL (35.1-46.3); Red Blood Cell Count 4.05 M/mm3 (3.80-5.20)
[2019-02-15 09:36] LABS: Alanine Aminotransfer (ALT/SGP 24 U/L (12-78); Albumin, Blood 3.6 g/dL (3.4-5.0); Albumin/Globulin Ratio 0.9 (0.8-1.8); Alk Phos 101 U/L (50-136); Anion Gap 4 mmol/L (6-16); Aspartate Aminotrans (AST/SGOT 13 U/L (12-37); Bilirubin, Total 0.3 mg/dL (0.1-1.0); Blood Urea Nitrogen 16 mg/dL (8-24); Bun/Creatinine Ratio 21.9 (12.0-20.0); CO2, Blood 31 mmol/L (21-32); Calcium, Blood 8.8 mg/dL (8.5-10.1); Chloride, Blood 102 mmol/L (98-108); Creatinine, Blood 0.73 mg/dL (0.40-1.00); Globulin, Blood 3.9 g/dL (2.2-4.0); Glomerular Filtration Rate >60 (60-); Glucose, Blood 111 mg/dL (70-99); Potassium, Blood 4.3 mmol/L (3.5-5.5); Sodium, Blood 137 mmol/L (136-145); Total Protein, Blood 7.5 g/dL (6.4-8.2)
== END 2019-02-15 12:23 | disposition home or self-care (01) ==
LOC: ATC 00:36
PROVIDERS: Internal Medicine Rheumatology
DX: M06.9 Rheumatoid arthritis, unspecified (principal); I11.0 Hypertensive heart disease with heart failure; I50.9 Heart failure, unspecified; I25.10 Atherosclerotic heart disease of native coronary artery without angina pectoris; J44.9 Chronic obstructive pulmonary disease, unspecified; K21.9 Gastro-esophageal reflux disease without esophagitis; E03.9 Hypothyroidism, unspecified; E78.5 Hyperlipidemia, unspecified; G47.33 Obstructive sleep apnea (adult) (pediatric); E66.9 Obesity, unspecified; Z88.1 Allergy status to other antibiotic agents; Z88.5 Allergy status to narcotic agent; Z88.8 Allergy status to other drugs, medicaments and biological substances; Z79.899 Other long term (current) drug therapy; Z79.82 Long term (current) use of aspirin
CPT/HCPCS: 36591; 80053; 85025; 85651; 96413; 96415; J1642; J7050; Q5103

== ENCOUNTER 2019-02-15 09:00 | Emergency (ER) | payer MEDICARE, OTHER ==
[~2019-02-15] VITALS: Ht 154.9 cm; Wt 120.2 kg
== END 2019-02-15 10:12 | disposition home or self-care (01) ==
LOC: ER 09:00
DX: G89.29 Other chronic pain (principal); I10 Essential (primary) hypertension; Z68.43 Body mass index [BMI] 50.0-59.9, adult; M54.9 Dorsalgia, unspecified; M79.604 Pain in right leg; M79.605 Pain in left leg; E66.01 Morbid (severe) obesity due to excess calories; I11.0 Hypertensive heart disease with heart failure; I50.9 Heart failure, unspecified; E03.9 Hypothyroidism, unspecified; J44.9 Chronic obstructive pulmonary disease, unspecified; M06.9 Rheumatoid arthritis, unspecified; Z90.49 Acquired absence of other specified parts of digestive tract; Z87.891 Personal history of nicotine dependence; Z88.5 Allergy status to narcotic agent; Z88.0 Allergy status to penicillin; Z88.1 Allergy status to other antibiotic agents; Z88.2 Allergy status to sulfonamides; Z91.048 Other nonmedicinal substance allergy status; Z88.8 Allergy status to other drugs, medicaments and biological substances; Z79.82 Long term (current) use of aspirin; Z79.52 Long term (current) use of systemic steroids; Z79.899 Other long term (current) drug therapy
CPT/HCPCS: 96374; 96375; 99283-25; J1170; J2405

== ENCOUNTER 2019-02-22 22:18 | Emergency (ER) | payer MEDICARE, OTHER ==
[~2019-02-22] VITALS: Ht 154.9 cm; Wt 117.9 kg
[2019-02-22 23:13] LABS: BASOPHILS ABSOLUTE AUTO 0.06 K/mm3 (0.00-0.23); BASOPHILS PERCENT AUTO 1 % (0-2); EOSINOPHILS ABSOLUTE AUTO 0.23 K/mm3 (0.00-0.68); EOSINOPHILS PERCENT AUTO 4 % (0-6); Hematocrit 37.5 % (33.0-51.0); Hemoglobin 12.1 g/dL (11.5-16.0); IMMATURE GRAN ABSOLUTE AUTO 0.01 K/mm3 (0.00-0.10); IMMATURE GRAN PERCENT AUTO 0 % (0-1); LYMPHOCYTES ABSOLUTE AUTO 1.56 K/mm3 (0.84-5.20); LYMPHOCYTES PERCENT AUTO 26 % (21-46); MONOCYTES ABSOLUTE AUTO 0.61 K/mm3 (0.16-1.47); MONOCYTES PERCENT AUTO 10 % (4-13); Mean Corpuscular HGB 31.7 pg (26.0-34.0); Mean Corpuscular HGB Conc 32.3 g/dL (31.5-36.5); Mean Corpuscular Volume 98 fL (80-100); NEUTROPHILS ABSOLUTE AUTO 3.43 K/mm3 (1.96-9.15); NEUTROPHILS PERCENT AUTO 58 % (41-73); Platelet Count 217 K/mm3 (150-400); RDW Coefficient Variation 12.6 % (11.7-14.2); RDW Standard Deviation 45.6 fL (35.1-46.3); Red Blood Cell Count 3.82 M/mm3 (3.80-5.20)
[2019-02-22 23:26] LABS: Alanine Aminotransfer (ALT/SGP 27 U/L (12-78); Albumin, Blood 3.4 g/dL (3.4-5.0); Alk Phos 113 U/L (50-136); Anion Gap 5 mmol/L (6-16); Aspartate Aminotrans (AST/SGOT 14 U/L (12-37); Bilirubin, Total 0.2 mg/dL (0.1-1.0); Blood Urea Nitrogen 20 mg/dL (8-24); Bun/Creatinine Ratio 26.6 (12.0-20.0); CO2, Blood 30 mmol/L (21-32); Calcium, Blood 8.9 mg/dL (8.5-10.1); Chloride, Blood 102 mmol/L (98-108); Creatinine, Blood 0.75 mg/dL (0.40-1.00); Globulin, Blood 3.4 g/dL (2.2-4.0); Glomerular Filtration Rate >60 (60-); Glucose, Blood 103 mg/dL (70-99); Potassium, Blood 3.8 mmol/L (3.5-5.5); Sodium, Blood 137 mmol/L (136-145); Total Protein, Blood 6.8 g/dL (6.4-8.2)
[2019-02-23 00:12] LABS: Source, Urine Clean Catch
[2019-02-23 00:15] LABS: Appearance, Urine Clear (Clear); Bilirubin, Urine Neg (Neg); Blood, Urine 2+ (Neg); Color, Urine Yellow (P-Yellow); Glucose Qualitative, Urine Neg (Neg); Ketones, Urine Neg (Neg); Leukocyte Esterase, Urine Neg (Neg); Nitrite, Urine Neg (Neg); Protein, Urine Neg (Neg); Urobilinogen, Urine NORM (Normal)
[2019-02-23 00:31] LABS: Bacteria Few /hpf; Red Blood Cells, Urine Rare /hpf (0-2); Squamous Epithelial Cells Mod /hpf (Few); White Blood Cells, Urine Not Seen /hpf (0-5)
== END 2019-02-23 02:35 | disposition home or self-care (01) ==
LOC: ER 22:18
PROVIDERS: Emergency Medicine; Physician Assistant
DX: R10.32 Left lower quadrant pain (principal); I11.0 Hypertensive heart disease with heart failure; I50.9 Heart failure, unspecified; E03.9 Hypothyroidism, unspecified; J44.9 Chronic obstructive pulmonary disease, unspecified; Z87.891 Personal history of nicotine dependence; Z79.899 Other long term (current) drug therapy; Z79.82 Long term (current) use of aspirin
CPT/HCPCS: 74176; 80053; 81001; 83690; 85025; 93005; 93010; 96374; 99285-25; A9270-GY; J1170

== ENCOUNTER 2019-03-13 00:09 | Emergency (ER) | payer MEDICARE, OTHER ==
[~2019-03-13] VITALS: Ht 152.4 cm; Wt 115.7 kg
[2019-03-13] MEDS ORDERED: Percocet 5-3251 EACH (00:16)
[2019-03-13] MEDS ORDERED: CARBAMAZEPINE400 M1 PO (00:16)
[2019-03-13] MEDS ORDERED: Levothyroxine137 MCG PO (00:17)
[2019-03-13] MEDS ORDERED: Carvedilol12.5 MG PO (00:17)
== END 2019-03-13 02:22 | disposition home or self-care (01) ==
LOC: ER 00:09
DX: G89.29 Other chronic pain (principal); M54.5 Low back pain; I11.0 Hypertensive heart disease with heart failure; I50.9 Heart failure, unspecified; J44.9 Chronic obstructive pulmonary disease, unspecified; M06.9 Rheumatoid arthritis, unspecified; Z88.0 Allergy status to penicillin; Z88.1 Allergy status to other antibiotic agents; Z88.8 Allergy status to other drugs, medicaments and biological substances; Z91.048 Other nonmedicinal substance allergy status; Z79.899 Other long term (current) drug therapy; Z87.891 Personal history of nicotine dependence
CPT/HCPCS: 96372; 99283-25; J1100; J1885; J3010

== ENCOUNTER → 2019-03-16 | Outpatient (CLI) | payer MEDICARE, OTHER ==
[~2019-03-16] MED LIST changes: +Amitiza24 MCG PO; +CARBAMAZEPINE400 M1 PO; +Carvedilol12.5 MG PO; +Levothyroxine137 MCG PO; +Percocet 5-3251 EACH
== END ==
LOC: LAB SHORT 19:04 → LAB 19:04
DX: R07.0 Pain in throat (principal)
CPT/HCPCS: 87081; 87147

== ENCOUNTER 2019-04-03 00:44 | Day surgery (SDC) | payer MEDICARE, OTHER ==
[~2019-04-03 00:44] MED LIST changes: -Amitiza24 MCG PO
[2019-04-03] MEDS ORDERED: Amitiza24 MCG PO (13:52)
[2019-04-03 14:05] LABS: BASOPHILS ABSOLUTE AUTO 0.05 K/mm3 (0.00-0.23); BASOPHILS PERCENT AUTO 1 % (0-2); EOSINOPHILS ABSOLUTE AUTO 0.29 K/mm3 (0.00-0.68); EOSINOPHILS PERCENT AUTO 5 % (0-6); Hematocrit 37.3 % (33.0-51.0); Hemoglobin 11.8 g/dL (11.5-16.0); IMMATURE GRAN ABSOLUTE AUTO 0.01 K/mm3 (0.00-0.10); IMMATURE GRAN PERCENT AUTO 0 % (0-1); LYMPHOCYTES ABSOLUTE AUTO 1.78 K/mm3 (0.84-5.20); LYMPHOCYTES PERCENT AUTO 28 % (21-46); MONOCYTES ABSOLUTE AUTO 0.52 K/mm3 (0.16-1.47); MONOCYTES PERCENT AUTO 8 % (4-13); Mean Corpuscular HGB 31.2 pg (26.0-34.0); Mean Corpuscular HGB Conc 31.6 g/dL (31.5-36.5); Mean Corpuscular Volume 99 fL (80-100); Mean Platelet Volume 9.4 fL (9.1-12.4); NEUTROPHILS ABSOLUTE AUTO 3.66 K/mm3 (1.96-9.15); NEUTROPHILS PERCENT AUTO 58 % (41-73); Platelet Count 217 K/mm3 (150-400); RDW Coefficient Variation 12.4 % (11.7-14.2); RDW Standard Deviation 45.1 fL (35.1-46.3); Red Blood Cell Count 3.78 M/mm3 (3.80-5.20); White Blood Cell Count 6.31 K/mm3 (4.00-11.30)
[2019-04-03 14:26] LABS: Alanine Aminotransfer (ALT/SGP 22 U/L (12-78); Albumin, Blood 3.5 g/dL (3.4-5.0); Albumin/Globulin Ratio 0.9 (0.8-1.8); Alk Phos 101 U/L (50-136); Anion Gap 4 mmol/L (6-16); Aspartate Aminotrans (AST/SGOT 15 U/L (12-37); Bilirubin, Total 0.5 mg/dL (0.1-1.0); Blood Urea Nitrogen 14 mg/dL (8-24); Bun/Creatinine Ratio 18.7 (12.0-20.0); CO2, Blood 32 mmol/L (21-32); Calcium, Blood 8.7 mg/dL (8.5-10.1); Chloride, Blood 101 mmol/L (98-108); Creatinine, Blood 0.75 mg/dL (0.40-1.00); Globulin, Blood 3.7 g/dL (2.2-4.0); Glomerular Filtration Rate >60 (60-); Glucose, Blood 121 mg/dL (70-99); Potassium, Blood 3.7 mmol/L (3.5-5.5); Sodium, Blood 137 mmol/L (136-145); Total Protein, Blood 7.2 g/dL (6.4-8.2)
== END 2019-04-03 15:55 | disposition home or self-care (01) ==
LOC: ATC 00:44
PROVIDERS: Internal Medicine Rheumatology
DX: M06.9 Rheumatoid arthritis, unspecified (principal); I11.0 Hypertensive heart disease with heart failure; I50.9 Heart failure, unspecified; I25.10 Atherosclerotic heart disease of native coronary artery without angina pectoris; K21.9 Gastro-esophageal reflux disease without esophagitis; J44.9 Chronic obstructive pulmonary disease, unspecified; E03.9 Hypothyroidism, unspecified; E78.5 Hyperlipidemia, unspecified; G47.33 Obstructive sleep apnea (adult) (pediatric); E66.9 Obesity, unspecified; Z88.1 Allergy status to other antibiotic agents; Z88.8 Allergy status to other drugs, medicaments and biological substances; Z79.899 Other long term (current) drug therapy; Z79.82 Long term (current) use of aspirin
CPT/HCPCS: 80053; 85025; 85651; 96413; 96415; J1642; J7050; Q5103

== ENCOUNTER 2019-06-16 01:03 | Day surgery (SDC) | payer MEDICARE, OTHER ==
[~2019-06-16 01:03] MED LIST changes: +Amitiza24 MCG PO
[2019-06-16 12:40] LABS: BASOPHILS ABSOLUTE AUTO 0.07 K/mm3 (0.00-0.23); BASOPHILS PERCENT AUTO 1 % (0-2); EOSINOPHILS ABSOLUTE AUTO 0.29 K/mm3 (0.00-0.68); EOSINOPHILS PERCENT AUTO 5 % (0-6); Hematocrit 36.9 % (33.0-51.0); Hemoglobin 11.4 g/dL (11.5-16.0); IMMATURE GRAN ABSOLUTE AUTO 0.01 K/mm3 (0.00-0.10); IMMATURE GRAN PERCENT AUTO 0 % (0-1); LYMPHOCYTES ABSOLUTE AUTO 1.65 K/mm3 (0.84-5.20); LYMPHOCYTES PERCENT AUTO 30 % (21-46); MONOCYTES ABSOLUTE AUTO 0.52 K/mm3 (0.16-1.47); MONOCYTES PERCENT AUTO 9 % (4-13); Mean Corpuscular HGB 30.6 pg (26.0-34.0); Mean Corpuscular HGB Conc 30.9 g/dL (31.5-36.5); Mean Corpuscular Volume 99 fL (80-100); NEUTROPHILS ABSOLUTE AUTO 2.97 K/mm3 (1.96-9.15); NEUTROPHILS PERCENT AUTO 54 % (41-73); Platelet Count 235 K/mm3 (150-400); RDW Coefficient Variation 12.9 % (11.7-14.2); RDW Standard Deviation 47.1 fL (35.1-46.3); Red Blood Cell Count 3.72 M/mm3 (3.80-5.20); White Blood Cell Count 5.51 K/mm3 (4.00-11.30)
[2019-06-16 12:53] LABS: Alanine Aminotransfer (ALT/SGP 16 U/L (12-78); Albumin, Blood 3.4 g/dL (3.4-5.0); Alk Phos 102 U/L (50-136); Anion Gap 3 mmol/L (6-16); Aspartate Aminotrans (AST/SGOT 12 U/L (12-37); Bilirubin, Total 0.3 mg/dL (0.1-1.0); Blood Urea Nitrogen 17 mg/dL (8-24); Bun/Creatinine Ratio 23.9 (12.0-20.0); CO2, Blood 30 mmol/L (21-32); Calcium, Blood 8.7 mg/dL (8.5-10.1); Chloride, Blood 105 mmol/L (98-108); Creatinine, Blood 0.71 mg/dL (0.40-1.00); Globulin, Blood 3.5 g/dL (2.2-4.0); Glomerular Filtration Rate >60 (60-); Glucose, Blood 111 mg/dL (70-99); Potassium, Blood 3.8 mmol/L (3.5-5.5); Sodium, Blood 138 mmol/L (136-145); Total Protein, Blood 6.9 g/dL (6.4-8.2)
== END 2019-06-16 11:10 | disposition home or self-care (01) ==
LOC: ATC 01:03
PROVIDERS: Internal Medicine Rheumatology
DX: M06.9 Rheumatoid arthritis, unspecified (principal); E03.9 Hypothyroidism, unspecified; E78.5 Hyperlipidemia, unspecified; I25.10 Atherosclerotic heart disease of native coronary artery without angina pectoris; I50.9 Heart failure, unspecified; J44.9 Chronic obstructive pulmonary disease, unspecified; K21.9 Gastro-esophageal reflux disease without esophagitis; E66.9 Obesity, unspecified; Z87.891 Personal history of nicotine dependence; Z88.8 Allergy status to other drugs, medicaments and biological substances; Z88.1 Allergy status to other antibiotic agents; Z88.5 Allergy status to narcotic agent; Z79.899 Other long term (current) drug therapy; Z79.82 Long term (current) use of aspirin
CPT/HCPCS: 80053; 85025; 85651; 96413; 96415; J1642; J7050; Q5103

== ENCOUNTER 2019-07-15 19:18 | Emergency (ER) | payer MEDICARE, OTHER ==
[~2019-07-15] VITALS: Ht 154.9 cm; Wt 111.6 kg
[2019-07-15] MEDS ORDERED: DOCU100 PO (19:32)
[2019-07-15] MEDS ORDERED: FLUC150A PO (19:33)
[2019-07-15] MEDS ORDERED: ALBU3IS INH (19:34)
[2019-07-15] MEDS ORDERED: LEFL20 PO (19:36)
[2019-07-15] MEDS ORDERED: PRAM.125 PO (19:39)
[2019-07-15] MEDS ORDERED: Acetaminophen325 M1 PO (19:40)
[2019-07-15] MEDS ORDERED: MELATONIN5 M1 PO (19:41)
[2019-07-15] MEDS ORDERED: Zantac150 MG PO (19:42)
[2019-07-16] MEDS ORDERED: ASPI81CH PO (07:33)
[2019-07-16] MEDS ORDERED: ATOR40TA PO (07:33)
[2019-07-16] MEDS ORDERED: DESV50 PO (07:34)
[2019-07-16] MEDS ORDERED: CARV6.25 PO (07:34)
[2019-07-16] MEDS ORDERED: DOCU100 PO (07:34)
[2019-07-16] MEDS ORDERED: CARB200 PO (07:34)
[2019-07-16] MEDS ORDERED: FLUC150A PO (07:36)
[2019-07-16] MEDS ORDERED: FURO80 PO (07:36)
[2019-07-16] MEDS ORDERED: INFLECTRA100 MG IV (07:36)
[2019-07-16] MEDS ORDERED: ALBU3IS (07:37)
[2019-07-16] MEDS ORDERED: Isosorbide Mono30 MG PO (07:37)
[2019-07-16] MEDS ORDERED: LIOT5 PO (07:38)
[2019-07-16] MEDS ORDERED: LOSA50 PO (07:38)
[2019-07-16] MEDS ORDERED: EUTHYROX137 MCG PO (07:38)
[2019-07-16] MEDS ORDERED: LEFL20 PO (07:38)
[2019-07-16] MEDS ORDERED: MAXIMUM DAILY1 EACH (07:39)
[2019-07-16] MEDS ORDERED: PANT40 PO (07:39)
[2019-07-16] MEDS ORDERED: PRAM.125 PO ×2 (07:39→07:40)
[2019-07-16] MEDS ORDERED: NIFE60ER PO (07:39)
[2019-07-16] MEDS ORDERED: Amitiza24 MCG PO (07:40)
[2019-07-16] MEDS ORDERED: Aldactone25 MG PO (07:40)
[2019-07-16] MEDS ORDERED: Norco 10-325 T1 EACH PO (07:41)
[2019-07-16] MEDS ORDERED: Cyclobenzaprine5 MG PO (07:41)
[2019-07-16] MEDS ORDERED: Zantac150 MG PO (07:42)
[2019-07-16] MEDS ORDERED: METPRE4DP PO (09:57)
[2019-07-16] MEDS ORDERED: Percocet 7.5-31 EACH PO (09:57)
[2019-07-16] MEDS ORDERED: Robaxin-750750 MG PO (09:57)
== END 2019-07-15 21:08 | disposition home or self-care (01) ==
LOC: ER 19:18
DX: G89.29 Other chronic pain (principal); M54.5 Low back pain; Z88.8 Allergy status to other drugs, medicaments and biological substances; Z88.5 Allergy status to narcotic agent; Z88.1 Allergy status to other antibiotic agents; Z88.2 Allergy status to sulfonamides; Z79.899 Other long term (current) drug therapy; Z79.891 Long term (current) use of opiate analgesic; Z79.82 Long term (current) use of aspirin; I11.0 Hypertensive heart disease with heart failure; I50.9 Heart failure, unspecified; E03.9 Hypothyroidism, unspecified
CPT/HCPCS: 36415; 96374; 99283-25; J1170

== ENCOUNTER 2019-07-16 07:07 | Emergency (ER) | payer MEDICARE, OTHER ==
[~2019-07-16] VITALS: Ht 154.9 cm; Wt 111.6 kg
[~2019-07-16 07:07] MED LIST changes: +Acetaminophen325 M1 PO; +FLUC150A PO; +MELATONIN5 M1 PO; +Zantac150 MG PO
[2019-07-16] MEDS ORDERED: ASPI81CH PO (07:33)
[2019-07-16] MEDS ORDERED: ATOR40TA PO (07:33)
[2019-07-16] MEDS ORDERED: CARB200 PO (07:34)
[2019-07-16] MEDS ORDERED: CARV6.25 PO (07:34)
[2019-07-16] MEDS ORDERED: DESV50 PO (07:34)
[2019-07-16] MEDS ORDERED: DOCU100 PO (07:34)
[2019-07-16] MEDS ORDERED: FURO80 PO (07:36)
[2019-07-16] MEDS ORDERED: FLUC150A PO (07:36)
[2019-07-16] MEDS ORDERED: INFLECTRA100 MG IV (07:36)
[2019-07-16] MEDS ORDERED: ALBU3IS (07:37)
[2019-07-16] MEDS ORDERED: Isosorbide Mono30 MG PO (07:37)
[2019-07-16] MEDS ORDERED: LEFL20 PO (07:38)
[2019-07-16] MEDS ORDERED: LIOT5 PO (07:38)
[2019-07-16] MEDS ORDERED: EUTHYROX137 MCG PO (07:38)
[2019-07-16] MEDS ORDERED: LOSA50 PO (07:38)
[2019-07-16] MEDS ORDERED: PRAM.125 PO ×2 (07:39→07:40)
[2019-07-16] MEDS ORDERED: NIFE60ER PO (07:39)
[2019-07-16] MEDS ORDERED: PANT40 PO (07:39)
[2019-07-16] MEDS ORDERED: MAXIMUM DAILY1 EACH (07:39)
[2019-07-16] MEDS ORDERED: Amitiza24 MCG PO (07:40)
[2019-07-16] MEDS ORDERED: Aldactone25 MG PO (07:40)
[2019-07-16] MEDS ORDERED: Cyclobenzaprine5 MG PO (07:41)
[2019-07-16] MEDS ORDERED: Norco 10-325 T1 EACH PO (07:41)
[2019-07-16] MEDS ORDERED: Zantac150 MG PO (07:42)
[2019-07-16] MEDS ORDERED: Percocet 7.5-31 EACH PO (09:57)
[2019-07-16] MEDS ORDERED: Robaxin-750750 MG PO (09:57)
[2019-07-16] MEDS ORDERED: METPRE4DP PO (09:57)
== END 2019-07-16 11:07 | disposition home or self-care (01) ==
LOC: ER 07:07
DX: M51.17 Intervertebral disc disorders with radiculopathy, lumbosacral region (principal); I11.0 Hypertensive heart disease with heart failure; I50.9 Heart failure, unspecified; E03.9 Hypothyroidism, unspecified; J44.9 Chronic obstructive pulmonary disease, unspecified; Z88.8 Allergy status to other drugs, medicaments and biological substances; Z88.5 Allergy status to narcotic agent; Z88.1 Allergy status to other antibiotic agents; Z88.0 Allergy status to penicillin; Z88.2 Allergy status to sulfonamides; Z79.899 Other long term (current) drug therapy; Z79.82 Long term (current) use of aspirin
CPT/HCPCS: 72100; 96372; 99283-25; J1100; J1170; J3010

== ENCOUNTER 2019-07-17 14:16 | Emergency (ER) | payer MEDICARE, OTHER ==
[~2019-07-17] VITALS: Ht 154.9 cm; Wt 111.6 kg
[~2019-07-17 14:16] MED LIST changes: +ALBU3IS; +Aldactone25 MG PO; +EUTHYROX137 MCG PO; +MAXIMUM DAILY1 EACH; +Percocet 7.5-31 EACH PO; +Robaxin-750750 MG PO
== END 2019-07-17 16:28 | disposition home or self-care (01) ==
LOC: ER 14:16
DX: M54.5 Low back pain (principal); G89.29 Other chronic pain; I11.0 Hypertensive heart disease with heart failure; I50.9 Heart failure, unspecified; E03.9 Hypothyroidism, unspecified; J44.9 Chronic obstructive pulmonary disease, unspecified
CPT/HCPCS: 96374; 96376; 99283-25; J1170

== ENCOUNTER 2019-08-04 00:15 | Day surgery (SDC) | payer MEDICARE, OTHER ==
[2019-08-04] MEDS ORDERED: INFLECTRA100 MG IV (08:40)
[2019-08-04 09:19] LABS: BASOPHILS ABSOLUTE AUTO 0.05 K/mm3 (0.00-0.23); BASOPHILS PERCENT AUTO 1 % (0-2); EOSINOPHILS ABSOLUTE AUTO 0.29 K/mm3 (0.00-0.68); EOSINOPHILS PERCENT AUTO 7 % (0-6); Hematocrit 36.6 % (33.0-51.0); Hemoglobin 11.6 g/dL (11.5-16.0); IMMATURE GRAN ABSOLUTE AUTO 0.01 K/mm3 (0.00-0.10); IMMATURE GRAN PERCENT AUTO 0 % (0-1); LYMPHOCYTES ABSOLUTE AUTO 1.51 K/mm3 (0.84-5.20); LYMPHOCYTES PERCENT AUTO 34 % (21-46); MONOCYTES PERCENT AUTO 9 % (4-13); Mean Corpuscular HGB 30.4 pg (26.0-34.0); Mean Corpuscular HGB Conc 31.7 g/dL (31.5-36.5); Mean Corpuscular Volume 96 fL (80-100); Mean Platelet Volume 9.3 fL (9.1-12.4); NEUTROPHILS ABSOLUTE AUTO 2.23 K/mm3 (1.96-9.15); NEUTROPHILS PERCENT AUTO 50 % (41-73); Platelet Count 229 K/mm3 (150-400); RDW Coefficient Variation 12.7 % (11.7-14.2); RDW Standard Deviation 45.1 fL (35.1-46.3); Red Blood Cell Count 3.82 M/mm3 (3.80-5.20); White Blood Cell Count 4.49 K/mm3 (4.00-11.30)
[2019-08-04 09:39] LABS: Alanine Aminotransfer (ALT/SGP 17 U/L (12-78); Albumin, Blood 3.1 g/dL (3.4-5.0); Albumin/Globulin Ratio 0.8 (0.8-1.8); Alk Phos 95 U/L (50-136); Anion Gap 5 mmol/L (6-16); Aspartate Aminotrans (AST/SGOT 11 U/L (12-37); Bilirubin, Total 0.2 mg/dL (0.1-1.0); Blood Urea Nitrogen 17 mg/dL (8-24); Bun/Creatinine Ratio 25.8 (12.0-20.0); CO2, Blood 31 mmol/L (21-32); Calcium, Blood 8.7 mg/dL (8.5-10.1); Chloride, Blood 105 mmol/L (98-108); Creatinine, Blood 0.66 mg/dL (0.40-1.00); Globulin, Blood 3.7 g/dL (2.2-4.0); Glomerular Filtration Rate >60 (60-); Glucose, Blood 126 mg/dL (70-99); Potassium, Blood 3.8 mmol/L (3.5-5.5); Sodium, Blood 141 mmol/L (136-145); Total Protein, Blood 6.8 g/dL (6.4-8.2)
[2019-08-04] MEDS ORDERED: ACET325 PO (09:46)
[2019-08-04] MEDS ORDERED: Amitiza24 MCG PO (09:48)
[2019-08-04] MEDS ORDERED: ANTACID PLUS A355 ML (09:49)
[2019-08-04] MEDS ORDERED: BISA10S PR (09:50)
[2019-08-04] MEDS ORDERED: Anti-Diarrheal2 MG PO (09:52)
[2019-08-04] MEDS ORDERED: Magnesium Citr296 ML PO (09:53)
[2019-08-04] MEDS ORDERED: ONDA4 PO (09:54)
[2019-08-04] MEDS ORDERED: GAVILAX17 GM PO (09:55)
== END 2019-08-04 10:51 | disposition home or self-care (01) ==
LOC: ATC 00:15
PROVIDERS: Internal Medicine Rheumatology
DX: M06.9 Rheumatoid arthritis, unspecified (principal); E78.5 Hyperlipidemia, unspecified; G47.33 Obstructive sleep apnea (adult) (pediatric); I25.10 Atherosclerotic heart disease of native coronary artery without angina pectoris; I11.0 Hypertensive heart disease with heart failure; E66.9 Obesity, unspecified; I50.9 Heart failure, unspecified; K21.9 Gastro-esophageal reflux disease without esophagitis; Z87.891 Personal history of nicotine dependence; Z79.82 Long term (current) use of aspirin; Z88.5 Allergy status to narcotic agent; Z88.8 Allergy status to other drugs, medicaments and biological substances; Z88.1 Allergy status to other antibiotic agents; Z91.041 Radiographic dye allergy status; Z79.899 Other long term (current) drug therapy; Z68.43 Body mass index [BMI] 50.0-59.9, adult
CPT/HCPCS: 80053; 85025; 85651; J1642; J7050; Q5103

== ENCOUNTER → 2019-08-31 | Outpatient (CLI) | payer MEDICARE, OTHER ==
[~2019-08-31] MED LIST changes: +ANTACID PLUS A355 ML; +Anti-Diarrheal2 MG PO; +BISA10S PR; +Magnesium Citr296 ML PO; +ONDA4 PO
== END | disposition home or self-care (01) ==
LOC: LAB EV 16:44 → LAB SHORT 16:44
DX: L72.3 Sebaceous cyst (principal)
CPT/HCPCS: 87070; 87205

== ENCOUNTER → 2019-09-02 | Outpatient (CLI) | payer MEDICARE, OTHER | LOC: LAB SHORT 14:00 → LAB EV 14:00 | DX: L72.3 Sebaceous cyst (principal) | CPT/HCPCS: 87070; 87205 ==

== ENCOUNTER 2019-09-21 16:44 | Emergency (ER) | payer MEDICARE, OTHER ==
[~2019-09-21] VITALS: Ht 157.5 cm; Wt 77.1 kg
== END 2019-09-21 21:25 | disposition home or self-care (01) ==
LOC: ER 16:44
DX: Z48.01 Encounter for change or removal of surgical wound dressing (principal); I11.0 Hypertensive heart disease with heart failure; I50.9 Heart failure, unspecified; J44.9 Chronic obstructive pulmonary disease, unspecified; M06.9 Rheumatoid arthritis, unspecified; Z88.5 Allergy status to narcotic agent; Z88.1 Allergy status to other antibiotic agents; Z88.2 Allergy status to sulfonamides; Z88.8 Allergy status to other drugs, medicaments and biological substances; Z91.09 Other allergy status, other than to drugs and biological substances; Z79.82 Long term (current) use of aspirin; Z79.899 Other long term (current) drug therapy; Z87.891 Personal history of nicotine dependence
CPT/HCPCS: 99283

== ENCOUNTER 2019-10-20 18:51 | Emergency (ER) | payer MEDICARE, OTHER ==
[~2019-10-20] VITALS: Ht 154.9 cm; Wt 111.1 kg
[2019-10-20 19:36] LABS: BASOPHILS ABSOLUTE AUTO 0.05 K/mm3 (0.00-0.23); BASOPHILS PERCENT AUTO 1 % (0-2); EOSINOPHILS ABSOLUTE AUTO 0.32 K/mm3 (0.00-0.68); EOSINOPHILS PERCENT AUTO 6 % (0-6); Hematocrit 35.5 % (33.0-51.0); Hemoglobin 11.2 g/dL (11.5-16.0); IMMATURE GRAN ABSOLUTE AUTO 0.01 K/mm3 (0.00-0.10); IMMATURE GRAN PERCENT AUTO 0 % (0-1); LYMPHOCYTES ABSOLUTE AUTO 1.39 K/mm3 (0.84-5.20); LYMPHOCYTES PERCENT AUTO 25 % (21-46); MONOCYTES ABSOLUTE AUTO 0.63 K/mm3 (0.16-1.47); MONOCYTES PERCENT AUTO 11 % (4-13); Mean Corpuscular HGB 30.4 pg (26.0-34.0); Mean Corpuscular HGB Conc 31.5 g/dL (31.5-36.5); Mean Corpuscular Volume 97 fL (80-100); NEUTROPHILS ABSOLUTE AUTO 3.14 K/mm3 (1.96-9.15); NEUTROPHILS PERCENT AUTO 57 % (41-73); Platelet Count 209 K/mm3 (150-400); RDW Coefficient Variation 13.2 % (11.7-14.2); RDW Standard Deviation 47.3 fL (35.1-46.3); Red Blood Cell Count 3.68 M/mm3 (3.80-5.20); White Blood Cell Count 5.54 K/mm3 (4.00-11.30)
[2019-10-20 19:53] LABS: Alanine Aminotransfer (ALT/SGP 17 U/L (12-78); Albumin, Blood 3.5 g/dL (3.4-5.0); Albumin/Globulin Ratio 0.9 (0.8-1.8); Alk Phos 119 U/L (50-136); Anion Gap 5 mmol/L (6-16); Aspartate Aminotrans (AST/SGOT 12 U/L (12-37); Bilirubin, Total 0.3 mg/dL (0.1-1.0); Blood Urea Nitrogen 22 mg/dL (8-24); Bun/Creatinine Ratio 34.3 (12.0-20.0); CO2, Blood 27 mmol/L (21-32); Calcium, Blood 8.5 mg/dL (8.5-10.1); Chloride, Blood 102 mmol/L (98-108); Creatinine, Blood 0.64 mg/dL (0.40-1.00); Globulin, Blood 3.8 g/dL (2.2-4.0); Glomerular Filtration Rate >60 (60-); Glucose, Blood 107 mg/dL (70-99); Potassium, Blood 4.2 mmol/L (3.5-5.5); Sodium, Blood 134 mmol/L (136-145); Total Protein, Blood 7.3 g/dL (6.4-8.2)
[2019-10-20 21:24] LABS: Source, Urine Clean Catch
[2019-10-20 21:27] LABS: Bilirubin, Urine Neg (Neg); Blood, Urine Neg (Neg); Glucose Qualitative, Urine Neg (Neg); Ketones, Urine Neg (Neg); Leukocyte Esterase, Urine Neg (Neg); Nitrite, Urine Neg (Neg); Protein, Urine Neg (Neg); Specific Gravity, Urine 1.015 (1.003-1.022); Urobilinogen, Urine NORM (Normal)
[2019-10-20 21:35] LABS: Appearance, Urine Clear (Clear); Color, Urine Yellow (P-Yellow)
== END 2019-10-20 23:30 | disposition home or self-care (01) ==
LOC: ER 18:51
PROVIDERS: Physician Assistant
DX: K59.00 Constipation, unspecified (principal); I11.0 Hypertensive heart disease with heart failure; I50.9 Heart failure, unspecified; E03.9 Hypothyroidism, unspecified; J44.9 Chronic obstructive pulmonary disease, unspecified; Z88.8 Allergy status to other drugs, medicaments and biological substances; Z88.5 Allergy status to narcotic agent; Z91.09 Other allergy status, other than to drugs and biological substances; Z88.1 Allergy status to other antibiotic agents; Z88.2 Allergy status to sulfonamides; Z79.899 Other long term (current) drug therapy; Z79.82 Long term (current) use of aspirin; Z79.51 Long term (current) use of inhaled steroids; Z87.891 Personal history of nicotine dependence
CPT/HCPCS: 74176; 80053; 81003; 83690; 85025; 99284-25; P9612

== ENCOUNTER 2019-11-10 00:15 | Day surgery (SDC) | payer MEDICARE, OTHER ==
[2019-11-10 14:20] LABS: BASOPHILS ABSOLUTE AUTO 0.06 K/mm3 (0.00-0.23); BASOPHILS PERCENT AUTO 1 % (0-2); EOSINOPHILS ABSOLUTE AUTO 0.35 K/mm3 (0.00-0.68); EOSINOPHILS PERCENT AUTO 6 % (0-6); Hematocrit 36.8 % (33.0-51.0); Hemoglobin 11.6 g/dL (11.5-16.0); IMMATURE GRAN ABSOLUTE AUTO 0.01 K/mm3 (0.00-0.10); IMMATURE GRAN PERCENT AUTO 0 % (0-1); LYMPHOCYTES ABSOLUTE AUTO 1.64 K/mm3 (0.84-5.20); LYMPHOCYTES PERCENT AUTO 30 % (21-46); MONOCYTES ABSOLUTE AUTO 0.57 K/mm3 (0.16-1.47); MONOCYTES PERCENT AUTO 10 % (4-13); Mean Corpuscular HGB 30.4 pg (26.0-34.0); Mean Corpuscular HGB Conc 31.5 g/dL (31.5-36.5); Mean Corpuscular Volume 96 fL (80-100); Mean Platelet Volume 9.5 fL (9.1-12.4); NEUTROPHILS ABSOLUTE AUTO 2.84 K/mm3 (1.96-9.15); NEUTROPHILS PERCENT AUTO 52 % (41-73); Platelet Count 221 K/mm3 (150-400); RDW Coefficient Variation 12.7 % (11.7-14.2); RDW Standard Deviation 45.3 fL (35.1-46.3); Red Blood Cell Count 3.82 M/mm3 (3.80-5.20); White Blood Cell Count 5.47 K/mm3 (4.00-11.30)
[2019-11-10 14:42] LABS: Alanine Aminotransfer (ALT/SGP 16 U/L (12-78); Albumin, Blood 3.5 g/dL (3.4-5.0); Albumin/Globulin Ratio 0.9 (0.8-1.8); Alk Phos 119 U/L (50-136); Anion Gap 4 mmol/L (6-16); Aspartate Aminotrans (AST/SGOT 13 U/L (12-37); Bilirubin, Total 0.3 mg/dL (0.1-1.0); Blood Urea Nitrogen 22 mg/dL (8-24); Bun/Creatinine Ratio 31.6 (12.0-20.0); CO2, Blood 30 mmol/L (21-32); Calcium, Blood 8.5 mg/dL (8.5-10.1); Chloride, Blood 105 mmol/L (98-108); Globulin, Blood 3.9 g/dL (2.2-4.0); Glomerular Filtration Rate >60 (60-); Glucose, Blood 151 mg/dL (70-99); Sodium, Blood 139 mmol/L (136-145); Total Protein, Blood 7.4 g/dL (6.4-8.2)
[2019-11-10] MEDS ORDERED: COMBIVENT RESPIM4 GM INH (15:48)
[2019-11-10] MEDS ORDERED: Amitiza24 MCG PO (16:31)
[2019-11-10] MEDS ORDERED: BLINK TEARS15 ML RIGHTEYE (16:34)
[2019-11-10] MEDS ORDERED: TUMS500 MG PO (16:35)
[2019-11-10] MEDS ORDERED: MILK OF MA400 MG/5 M PO (16:39)
[2019-11-10] MEDS ORDERED: ONDA4 PO (16:40)
[2019-11-10] MEDS ORDERED: Percocet 10-321 EACH PO (16:41)
[2019-11-10] MEDS ORDERED: SENNA LAXATIVE8.6 MG PO (16:43)
[2019-11-10] MEDS ORDERED: Secura Protecti50 GM TOP (16:46)
== END 2019-11-10 16:25 | disposition home or self-care (01) ==
LOC: ATC 00:15
PROVIDERS: Internal Medicine Rheumatology
DX: M06.9 Rheumatoid arthritis, unspecified (principal); E78.5 Hyperlipidemia, unspecified; E03.9 Hypothyroidism, unspecified; I11.0 Hypertensive heart disease with heart failure; I50.9 Heart failure, unspecified; K21.9 Gastro-esophageal reflux disease without esophagitis; J45.909 Unspecified asthma, uncomplicated; F32.9 Major depressive disorder, single episode, unspecified; M54.5 Low back pain; E66.01 Morbid (severe) obesity due to excess calories; Z88.5 Allergy status to narcotic agent; Z88.8 Allergy status to other drugs, medicaments and biological substances; Z88.6 Allergy status to analgesic agent; Z88.1 Allergy status to other antibiotic agents; Z91.041 Radiographic dye allergy status; Z79.899 Other long term (current) drug therapy; Z79.82 Long term (current) use of aspirin; Z87.891 Personal history of nicotine dependence; Z68.43 Body mass index [BMI] 50.0-59.9, adult
CPT/HCPCS: 80053; 85025; 85651; J1642; J7050; Q5103

== ENCOUNTER 2019-12-06 00:10 | Day surgery (SDC) | payer MEDICARE, OTHER ==
[~2019-12-06 00:10] MED LIST changes: +BLINK TEARS15 ML RIGHTEYE; +COMBIVENT RESPIM4 GM INH; +Golytely Packe1 EACH PO; +MILK OF MA400 MG/5 M PO; +Percocet 10-321 EACH PO; +SENNA LAXATIVE8.6 MG PO; +Secura Protecti50 GM TOP; +TUMS500 MG PO
[2019-12-06 14:17] LABS: BASOPHILS ABSOLUTE AUTO 0.07 K/mm3 (0.00-0.23); BASOPHILS PERCENT AUTO 1 % (0-2); EOSINOPHILS ABSOLUTE AUTO 0.39 K/mm3 (0.00-0.68); EOSINOPHILS PERCENT AUTO 6 % (0-6); Hematocrit 36.8 % (33.0-51.0); Hemoglobin 11.7 g/dL (11.5-16.0); IMMATURE GRAN ABSOLUTE AUTO 0.01 K/mm3 (0.00-0.10); IMMATURE GRAN PERCENT AUTO 0 % (0-1); LYMPHOCYTES PERCENT AUTO 26 % (21-46); MONOCYTES ABSOLUTE AUTO 0.58 K/mm3 (0.16-1.47); MONOCYTES PERCENT AUTO 8 % (4-13); Mean Corpuscular HGB 30.5 pg (26.0-34.0); Mean Corpuscular HGB Conc 31.8 g/dL (31.5-36.5); Mean Corpuscular Volume 96 fL (80-100); Mean Platelet Volume 9.2 fL (9.1-12.4); NEUTROPHILS ABSOLUTE AUTO 4.09 K/mm3 (1.96-9.15); NEUTROPHILS PERCENT AUTO 59 % (41-73); Platelet Count 227 K/mm3 (150-400); RDW Coefficient Variation 12.8 % (11.7-14.2); RDW Standard Deviation 45.8 fL (35.1-46.3); Red Blood Cell Count 3.83 M/mm3 (3.80-5.20); White Blood Cell Count 6.94 K/mm3 (4.00-11.30)
[2019-12-06 14:38] LABS: Alanine Aminotransfer (ALT/SGP 19 U/L (12-78); Albumin, Blood 3.3 g/dL (3.4-5.0); Albumin/Globulin Ratio 0.9 (0.8-1.8); Alk Phos 101 U/L (50-136); Anion Gap 2 mmol/L (6-16); Aspartate Aminotrans (AST/SGOT 12 U/L (12-37); Bilirubin, Total 0.2 mg/dL (0.1-1.0); Blood Urea Nitrogen 22 mg/dL (8-24); Bun/Creatinine Ratio 28.4 (12.0-20.0); CO2, Blood 32 mmol/L (21-32); Calcium, Blood 8.3 mg/dL (8.5-10.1); Chloride, Blood 105 mmol/L (98-108); Creatinine, Blood 0.78 mg/dL (0.40-1.00); Globulin, Blood 3.7 g/dL (2.2-4.0); Glomerular Filtration Rate >60 (60-); Glucose, Blood 111 mg/dL (70-99); Potassium, Blood 4.1 mmol/L (3.5-5.5); Sodium, Blood 139 mmol/L (136-145)
== END 2019-12-06 16:19 | disposition home or self-care (01) ==
LOC: ATC 00:10
PROVIDERS: Internal Medicine Rheumatology
DX: M06.9 Rheumatoid arthritis, unspecified (principal); E78.5 Hyperlipidemia, unspecified; E03.9 Hypothyroidism, unspecified; G47.33 Obstructive sleep apnea (adult) (pediatric); I11.0 Hypertensive heart disease with heart failure; E50.9 Vitamin A deficiency, unspecified; I50.9 Heart failure, unspecified; E66.01 Morbid (severe) obesity due to excess calories; F32.9 Major depressive disorder, single episode, unspecified; Z99.89 Dependence on other enabling machines and devices; Z88.1 Allergy status to other antibiotic agents; Z88.6 Allergy status to analgesic agent; Z88.5 Allergy status to narcotic agent; Z91.041 Radiographic dye allergy status; Z79.82 Long term (current) use of aspirin; Z79.899 Other long term (current) drug therapy; J44.9 Chronic obstructive pulmonary disease, unspecified; M54.5 Low back pain
CPT/HCPCS: 80053; 85025; 85651; 96413; 96415; J1642; J7050; Q5103

== ENCOUNTER 2020-03-01 00:26 | Day surgery (SDC) | payer MEDICARE, OTHER ==
[2020-03-01 13:58] LABS: BASOPHILS ABSOLUTE AUTO 0.06 K/mm3 (0.00-0.23); BASOPHILS PERCENT AUTO 1 % (0-2); EOSINOPHILS ABSOLUTE AUTO 0.29 K/mm3 (0.00-0.68); EOSINOPHILS PERCENT AUTO 5 % (0-6); Hematocrit 36.9 % (33.0-51.0); Hemoglobin 11.4 g/dL (11.5-16.0); IMMATURE GRAN ABSOLUTE AUTO 0.01 K/mm3 (0.00-0.10); IMMATURE GRAN PERCENT AUTO 0 % (0-1); LYMPHOCYTES ABSOLUTE AUTO 1.55 K/mm3 (0.84-5.20); LYMPHOCYTES PERCENT AUTO 26 % (21-46); MONOCYTES ABSOLUTE AUTO 0.48 K/mm3 (0.16-1.47); MONOCYTES PERCENT AUTO 8 % (4-13); Mean Corpuscular HGB 29.7 pg (26.0-34.0); Mean Corpuscular HGB Conc 30.9 g/dL (31.5-36.5); Mean Corpuscular Volume 96 fL (80-100); Mean Platelet Volume 9.4 fL (9.1-12.4); NEUTROPHILS ABSOLUTE AUTO 3.53 K/mm3 (1.96-9.15); NEUTROPHILS PERCENT AUTO 60 % (41-73); Platelet Count 204 K/mm3 (150-400); RDW Coefficient Variation 13.4 % (11.7-14.2); RDW Standard Deviation 47.4 fL (35.1-46.3); Red Blood Cell Count 3.84 M/mm3 (3.80-5.20); White Blood Cell Count 5.92 K/mm3 (4.00-11.30)
[2020-03-01 14:16] LABS: Alanine Aminotransfer (ALT/SGP 20 U/L (12-78); Albumin, Blood 3.3 g/dL (3.4-5.0); Albumin/Globulin Ratio 0.8 (0.8-1.8); Alk Phos 105 U/L (50-136); Anion Gap 2 mmol/L (6-16); Aspartate Aminotrans (AST/SGOT 13 U/L (12-37); Bilirubin, Total 0.3 mg/dL (0.1-1.0); Blood Urea Nitrogen 24 mg/dL (8-24); Bun/Creatinine Ratio 27.4 (12.0-20.0); CO2, Blood 32 mmol/L (21-32); Chloride, Blood 104 mmol/L (98-108); Creatinine, Blood 0.88 mg/dL (0.40-1.00); Globulin, Blood 3.9 g/dL (2.2-4.0); Glomerular Filtration Rate >60 (60-); Glucose, Blood 122 mg/dL (70-99); Sodium, Blood 138 mmol/L (136-145); Total Protein, Blood 7.2 g/dL (6.4-8.2)
== END 2020-03-01 16:00 | disposition home or self-care (01) ==
LOC: ATC 00:26
PROVIDERS: Internal Medicine Rheumatology
DX: M06.9 Rheumatoid arthritis, unspecified (principal); I11.0 Hypertensive heart disease with heart failure; I50.9 Heart failure, unspecified; E78.5 Hyperlipidemia, unspecified; E03.9 Hypothyroidism, unspecified; J44.9 Chronic obstructive pulmonary disease, unspecified; K21.9 Gastro-esophageal reflux disease without esophagitis; Z87.891 Personal history of nicotine dependence; Z88.5 Allergy status to narcotic agent; Z88.2 Allergy status to sulfonamides; Z88.8 Allergy status to other drugs, medicaments and biological substances; Z88.1 Allergy status to other antibiotic agents; Z91.041 Radiographic dye allergy status; Z79.82 Long term (current) use of aspirin; F32.9 Major depressive disorder, single episode, unspecified; E66.01 Morbid (severe) obesity due to excess calories; Z68.42 Body mass index [BMI] 45.0-49.9, adult
CPT/HCPCS: 80053; 85025; 85651; 96413; 96415; J1642; J7050; Q5103

== ENCOUNTER → 2020-04-09 | Outpatient (CLI) | payer MEDICARE, OTHER ==
[~2020-04-09] MED LIST changes: +ALDACTONE25 MG PO; +AMITIZA24 MCG PO; +Coreg12.5 MG PO; +FLUT.05NI; +IPRAT-ALBUT 0.5-3 ML INH; +OMEP20ER PO; +TRANSDERM-SCOP1 EACH TD
[2020-04-09 20:30] LABS: Free Thyroxine 0.74 ng/dL (0.70-1.60); Thyroid Stimulating Hormone 3.71 uIU/mL (0.360-4.800)
== END ==
LOC: LAB SHORT 11:43 → LAB 11:43
PROVIDERS: Family Medicine
DX: E04.9 Nontoxic goiter, unspecified (principal); E03.9 Hypothyroidism, unspecified
CPT/HCPCS: 84439; 84443

== ENCOUNTER 2020-04-30 08:43 | Inpatient (IN) | payer OTHER ==
[~2020-04-30] VITALS: Ht 160 cm; Wt 120.2 kg
[~2020-04-30 08:43] MED LIST changes: -TRANSDERM-SCOP1 EACH TD
[2020-04-30 10:00] LABS: BASOPHILS ABSOLUTE AUTO 0.05 K/mm3 (0.00-0.23); BASOPHILS PERCENT AUTO 1 % (0-2); EOSINOPHILS ABSOLUTE AUTO 0.09 K/mm3 (0.00-0.68); EOSINOPHILS PERCENT AUTO 1 % (0-6); Hematocrit 40.5 % (33.0-51.0); Hemoglobin 12.4 g/dL (11.5-16.0); IMMATURE GRAN ABSOLUTE AUTO 0.03 K/mm3 (0.00-0.10); IMMATURE GRAN PERCENT AUTO 0 % (0-1); LYMPHOCYTES ABSOLUTE AUTO 1.46 K/mm3 (0.84-5.20); LYMPHOCYTES PERCENT AUTO 18 % (21-46); MONOCYTES ABSOLUTE AUTO 0.89 K/mm3 (0.16-1.47); MONOCYTES PERCENT AUTO 11 % (4-13); Mean Corpuscular HGB Conc 30.6 g/dL (31.5-36.5); Mean Corpuscular Volume 98 fL (80-100); Mean Platelet Volume 9.2 fL (9.1-12.4); NEUTROPHILS ABSOLUTE AUTO 5.52 K/mm3 (1.96-9.15); NEUTROPHILS PERCENT AUTO 69 % (41-73); Platelet Count 216 K/mm3 (150-400); RDW Standard Deviation 51.1 fL (35.1-46.3); Red Blood Cell Count 4.13 M/mm3 (3.80-5.20); White Blood Cell Count 8.04 K/mm3 (4.00-11.30)
[2020-04-30 10:19] LABS: International Normalized Ratio 0.94; Prothrombin Time Results 10.1 Sec (9.7-11.5)
[2020-04-30 10:28] LABS: Albumin, Blood 3.8 g/dL (3.4-5.0); Bilirubin, Total 0.2 mg/dL (0.1-1.0); Bun/Creatinine Ratio 29.6 (12.0-20.0); Calcium, Blood 8.3 mg/dL (8.5-10.1); Creatinine, Blood 2.06 mg/dL (0.40-1.00); Potassium, Blood 3.6 mmol/L (3.5-5.5); Total Protein, Blood 7.8 g/dL (6.4-8.2)
[2020-04-30 11:10] LABS: Source, Urine Catheter
[2020-04-30 11:22] LABS: Appearance, Urine Clear (Clear); Bilirubin, Urine Neg (Neg); Blood, Urine 2+ (Neg); Color, Urine Yellow (P-Yellow); Glucose Qualitative, Urine Neg (Neg); Ketones, Urine Neg (Neg); Leukocyte Esterase, Urine Neg (Neg); Nitrite, Urine Neg (Neg); Protein, Urine 1+ (Neg); Specific Gravity, Urine 1.015 (1.003-1.022); Urobilinogen, Urine NORM (Normal)
[2020-04-30 11:44] LABS: Bacteria Rare /hpf; Granular Casts 0-2 /lpf (0); Mucus Light (0-Heavy); Squamous Epithelial Cells Rare /hpf (Few); White Blood Cells, Urine 0-2 /hpf (0-5)
[2020-04-30 14:55] LABS: U Amphetamine Screen Not Detected; U Barbituate Screen Not Detected; U Benzodiazapine Screen Not Detected; U Buprenorphine Screen Not Detected; U Cannabinoids Screen Not Detected; U Cocaine Screen Not Detected; U Methadone Screen Not Detected; U Methamphetamine Screen Not Detected; U Opiates Screen DETECTED; U Oxycodone Screen Not Detected; U Phencyclidine Screen Not Detected; U Propoxyphene Screen Not Detected
[2020-04-30 15:35] LABS: Creatine Kinase MB 4.8 ng/mL (0.0-3.6); Creatine Kinase MB Index 1.2 (0.0-4.0)
[2020-05-01 03:34] LABS: BASOPHILS ABSOLUTE AUTO 0.02 K/mm3 (0.00-0.23); BASOPHILS PERCENT AUTO 0 % (0-2); EOSINOPHILS ABSOLUTE AUTO 0.09 K/mm3 (0.00-0.68); EOSINOPHILS PERCENT AUTO 1 % (0-6); Hematocrit 40.3 % (33.0-51.0); Hemoglobin 12.4 g/dL (11.5-16.0); IMMATURE GRAN ABSOLUTE AUTO 0.02 K/mm3 (0.00-0.10); IMMATURE GRAN PERCENT AUTO 0 % (0-1); LYMPHOCYTES ABSOLUTE AUTO 1.13 K/mm3 (0.84-5.20); LYMPHOCYTES PERCENT AUTO 18 % (21-46); MONOCYTES ABSOLUTE AUTO 0.61 K/mm3 (0.16-1.47); MONOCYTES PERCENT AUTO 10 % (4-13); Mean Corpuscular HGB 30.2 pg (26.0-34.0); Mean Corpuscular HGB Conc 30.8 g/dL (31.5-36.5); Mean Corpuscular Volume 98 fL (80-100); Mean Platelet Volume 9.2 fL (9.1-12.4); NEUTROPHILS ABSOLUTE AUTO 4.43 K/mm3 (1.96-9.15); NEUTROPHILS PERCENT AUTO 70 % (41-73); Platelet Count 187 K/mm3 (150-400); RDW Coefficient Variation 13.3 % (11.7-14.2); RDW Standard Deviation 48.7 fL (35.1-46.3); Red Blood Cell Count 4.11 M/mm3 (3.80-5.20)
[2020-05-01 03:52] LABS: Albumin, Blood 3.2 g/dL (3.4-5.0); Albumin/Globulin Ratio 0.9 (0.8-1.8); Bilirubin, Total 0.2 mg/dL (0.1-1.0); Calcium, Blood 7.5 mg/dL (8.5-10.1); Creatinine, Blood 1.17 mg/dL (0.40-1.00); Globulin, Blood 3.7 g/dL (2.2-4.0); Potassium, Blood 3.5 mmol/L (3.5-5.5); Total Protein, Blood 6.9 g/dL (6.4-8.2)
[2020-05-03] MEDS ORDERED: TRANSDERM-SCOP1 EACH TD (10:33)
== END 2020-05-03 11:46 | disposition hospice, home (50) | DRG 682 ==
LOC: ER 08:43 → PCU 15:46 → MEDS 05-01 15:56
PROVIDERS: Nurse Practitioner Acute Care; Physician Assistant; ADMIT Internal Medicine
DX: N17.9 Acute kidney failure, unspecified (principal); G92 Toxic encephalopathy; I50.32 Chronic diastolic (congestive) heart failure; J44.1 Chronic obstructive pulmonary disease with (acute) exacerbation; J96.10 Chronic respiratory failure, unspecified whether with hypoxia or hypercapnia; I11.0 Hypertensive heart disease with heart failure; E03.9 Hypothyroidism, unspecified; M06.9 Rheumatoid arthritis, unspecified; M54.40 Lumbago with sciatica, unspecified side; G89.29 Other chronic pain; G47.33 Obstructive sleep apnea (adult) (pediatric); I25.10 Atherosclerotic heart disease of native coronary artery without angina pectoris; Z51.5 Encounter for palliative care; Z87.891 Personal history of nicotine dependence; Z79.82 Long term (current) use of aspirin; Z79.51 Long term (current) use of inhaled steroids
CPT/HCPCS: 36415; 51702; 70450; 71046; 74176; 80053; 81001; 82140; 82550; 82553; 83735; 83880; 84100; 85025; 85610; 93005; 93010; 94640; 96372; 96374-59; 96375-59; 97166; 97530; 99285-25; A9270; A9270-GY; G0378; J1642; J1644; J2310; J2405; J7030; J7040

== ENCOUNTER 2020-08-14 13:41 | Inpatient (IN) | payer OTHER ==
[~2020-08-14] VITALS: Ht 177.8 cm; Wt 113.4 kg
[~2020-08-14 13:41] MED LIST changes: -IPRAT-ALBUT 0.5-3 ML INH; -SENNA LAXATIVE8.6 MG PO; -TUMS500 MG PO
[2020-08-14 14:46] LABS: Hematocrit 42.8 % (33.0-51.0); Hemoglobin 13.9 g/dL (11.5-16.0); Mean Corpuscular HGB 32.1 pg (26.0-34.0); Mean Corpuscular HGB Conc 32.5 g/dL (31.5-36.5); Mean Corpuscular Volume 99 fL (80-100); Mean Platelet Volume 9.4 fL (9.1-12.4); NRBC ABSOLUTE 0.02 K/mm3 (0.00-0.02); NRBC Auto 0.2 /100 WBC (0.0-0.2); Platelet Count 269 K/mm3 (150-400); RDW Coefficient Variation 15.6 % (11.7-14.2); RDW Standard Deviation 55.8 fL (35.1-46.3); Red Blood Cell Count 4.33 M/mm3 (3.80-5.20); White Blood Cell Count 10.53 K/mm3 (4.00-11.30)
[2020-08-14 15:20] LABS: BAND PERCENT MAN 26 % (0-8); BASOPHILS PERCENT MAN 0 % (0-2); EOSINOPHILS PERCENT MAN 0 % (0-6); LYMPHOCYTES ABSOLUTE MAN 1.05 K/mm3 (0.84-5.20); LYMPHOCYTES PERCENT MAN 10 % (21-46); MONOCYTES ABSOLUTE MAN 0.31 K/mm3 (0.16-1.47); MONOCYTES PERCENT MAN 3 % (4-13); NEUTROPHILS ABSOLUTE MAN 9.16 K/mm3 (1.96-9.15); SEG NEUTROPHILS PERCENT MAN 61 % (41-73); TOTAL CELLS COUNTED 100
[2020-08-14 16:02] LABS: Influenza A, PCR Negative (NEGATIVE); Influenza B, PCR Negative (NEGATIVE); Resp Syncytial Virus, PCR Negative (NEGATIVE); SARS-Cov-2 (COVID-19) PCR, MMC Negative (NEGATIVE)
[2020-08-14 16:05] LABS: Calcium, Ionized (POC) 1.03 mmol/L (1.10-1.46); Chloride (POC) 92 mmol/L (98-108); Creatinine (POC) 1.3 mg/dL (0.6-1.0); Glucose (ISTAT POC) 209 mg/dL (70-99); Potassium (POC) 3.3 mmol/L (3.5-5.5); Sodium (POC) 132 mmol/L (135-148); Total CO2 (POC) 26 mmol/L (21-32)
[2020-08-14] MEDS ORDERED: Tegretol Xr400 MG PO (16:37)
[2020-08-14] MEDS ORDERED: DESV50 PO (16:38)
[2020-08-14] MEDS ORDERED: FOLI1 PO (16:39)
[2020-08-14] MEDS ORDERED: POTCHL20ER PO (16:40)
[2020-08-14 17:11] LABS: International Normalized Ratio 1.18; Prothrombin Time Results 12.5 Sec (9.7-11.5)
[2020-08-14 17:12] LABS: Albumin, Blood 2.9 g/dL (3.4-5.0); Albumin/Globulin Ratio 0.7 (0.8-1.8); Bilirubin, Total 1.6 mg/dL (0.1-1.0); Bun/Creatinine Ratio 21.5 (12.0-20.0); Calcium, Blood 8.8 mg/dL (8.5-10.1); Creatinine, Blood 1.21 mg/dL (0.40-1.00); Globulin, Blood 4.2 g/dL (2.2-4.0); Potassium, Blood 3.3 mmol/L (3.5-5.5); Total Protein, Blood 7.1 g/dL (6.4-8.2)
[2020-08-14] MEDS ORDERED: FURO80 PO (17:22)
[2020-08-14] MEDS ORDERED: Cyclobenzaprine5 MG PO (17:23)
[2020-08-14] MEDS ORDERED: MIRAPEX0.25 MG PO (17:23)
[2020-08-14] MEDS ORDERED: TUMS500 MG PO (17:25)
[2020-08-14] MEDS ORDERED: SENNA LAXATIVE8.6 MG PO (17:26)
[2020-08-14] MEDS ORDERED: ONDA4 PO (17:26)
[2020-08-14] MEDS ORDERED: IPRAT-ALBUT 0.5-3 ML NEB (17:27)
[2020-08-14] MEDS ORDERED: PRAM.125 PO (17:36)
[2020-08-14] MEDS ORDERED: MIRALAX17 GM PO (17:37)
[2020-08-14] MEDS ORDERED: TRANSDERM-SCOP1 EACH TD (17:37)
[2020-08-14] MEDS ORDERED: ACET325 PO (17:38)
[2020-08-14] MEDS ORDERED: ATROPINE SULFATE2 M3 SL (17:40)
[2020-08-14] MEDS ORDERED: BENADRYL25 MG PO (17:41)
[2020-08-14] MEDS ORDERED: DURAGESIC1 EAC1 TD (17:42)
[2020-08-14] MEDS ORDERED: FENTANYL1 EA10 TD (17:43)
--- NOTE | 2020-08-14 17:44 | NUR ---
Spoke with ED TIARA Jensen and discussed case. Pt being admitted for perforated bowel. Pt currently on hospice and wants to revocate. Met with Pt in ED room. Pt reports 9/10 pain in her abdomen. Pt appears diaphoretic as well. Explored with Pt of her wishes. Pt states she wants "to come off of hospice" and is agreeable for interventions. Ended visit due to Pt's significant pain. Pt agreeable for Palliative Care to F/U when pain is better managed. Spoke with TIARA Jensen. Mikey recieved V/O from ED provider to offer morphine. Pt will be offered pain medication. Spoke with admitting provider Niya and discussed case. Surgeon will hold off on surgery until Pt becomes more stable. Pt will be admitted to ICU. Spoke with [facility] community health directorTIARA Cavanaugh and relayed Pt's wishes to revocate from hospice. Afshan arrives and has Pt signs revocation document. Palliative Care will remain available for symptom management and therapeutic visits.
[2020-08-14] MEDS ORDERED: IBUP200 PO (17:45)
[2020-08-14] MEDS ORDERED: DOK100 M2 PO (17:45)
[2020-08-14] MEDS ORDERED: LORA.5 PO (17:46)
[2020-08-14] MEDS ORDERED: MORP20L PO (17:47)
[2020-08-14] MEDS ORDERED: NITR.4SL SL (17:47)
[2020-08-14] MEDS ORDERED: Phenergan25 M1 PO (17:48)
[2020-08-14] MEDS ORDERED: LOPE2C PO (17:50)
[2020-08-14] MEDS ORDERED: BISA10S PR (17:51)
[2020-08-14] MEDS ORDERED: ketoprofen TOP (17:53)
[2020-08-14] MEDS ORDERED: [UNRECOGNIZED DRUG - OTHER] TOP (17:54)
--- NOTE | 2020-08-14 20:45 | NUR ---
ASSUMED PT CARE AT [address] AT BEDSIDE. UNABLE TO OBTAIN BLOOD PRESSURE. PT COLD, CLAMMY AND MOTTLED TO EXTREMITIES. BIPAP IN PLACE AT TIME OF ASSUMPTION WITH DISCUSSION BEING HAD REGARDING INTUBATION AND CENTRAL LINE PLACEMENT. PT MOANING IN PAIN. CALL MADE TO GRAND-DAUGHTER AT WHICH TIME THE DECISION WAS MADE TO MAKE PT COMFORT CARE THE PT WOULD NOT WANT ANY AGGRESSIVE INTERVENTIONS. COMFORT CARE ORDERS PLACED, FLUID BOLUS STOPPED, BIPAP REMOVED AND PT PLACED ON 4L OXYGEN VIA NC, AND MEDICATED WITH MORPHINE, ROXONAL, AND ZOFRAN PER ORDERS. MORPHINE APPEARED UNEFFECTIVE FOR PAIN; THEREFORE, CALL PLACED TO MARLI WE[facility] REGARDING DILAUDID ORDERS. MARLI WE[facility] ENTERED ORDERS FOR 200MCG OF FENTANYL TO BE GIVEN NOW WITH CONTINUOUS ORDERS OF FENTANYL 50-100MCG TO BE GIVEN Q1 HOUR PRN. FENTANYL APPEARED TO BE EFFECTIVE IN MANAGING PAIN PT APPEARS AT [facility] AT THIS TIME. FAMILY IS AT BEDSIDE, WELL PALLIATIVE CARE.
--- NOTE | 2020-08-14 20:48 | NUR ---
Initial spiritual care note: C/B to provide comfort, certified genetic counselor, and prayer to pt and grand-daughter. Aleyda appears near to end of life. RN doing great job keeping pain/air hunger at bay. Grand-daughter tearful, loving and clearly devoted. I will remain available.
--- NOTE | 2020-08-15 01:37 | NUR ---
TIME OF 0125 GRAND DAUGHTER CALLED WHEN HR WAS STARTING TO DECREASE FROM 100'S TO 70'S; HOWEVER, VOICEMAIL REACHED; MESSAGE LEFT WITH RETURN NUMBER TO CALL BACK. HR QUICKLY DECREASED TO THE 30'S. ASSESSED PULSE WITH NONE FOUND. LISTEN FOR HEART TONES WITH NONE NOTED. END OF LIFE CARES BEING PROVIDED.
== END 2020-08-15 01:25 | DRG 871 ==
LOC: ER 13:41 → ICUW 17:15
PROVIDERS: Emergency Medicine; Nurse Practitioner Acute Care; ADMIT Internal Medicine
PROC: 5A09357 Assistance with Respiratory Ventilation, Less than 24 Consecutive Hours, Continuous Positive Airway Pressure (ICD-10-PCS; principal; 2020-08-14)
DX: A41.9 Sepsis, unspecified organism (principal); R65.21 Severe sepsis with septic shock; J96.21 Acute and chronic respiratory failure with hypoxia; K57.20 Diverticulitis of large intestine with perforation and abscess without bleeding; I50.32 Chronic diastolic (congestive) heart failure; I11.0 Hypertensive heart disease with heart failure; E03.9 Hypothyroidism, unspecified; G25.81 Restless legs syndrome; E66.01 Morbid (severe) obesity due to excess calories; Z51.5 Encounter for palliative care; Z68.35 Body mass index [BMI] 35.0-35.9, adult; M06.9 Rheumatoid arthritis, unspecified; Z96.643 Presence of artificial hip joint, bilateral; G89.29 Other chronic pain; J44.9 Chronic obstructive pulmonary disease, unspecified; Z87.891 Personal history of nicotine dependence; E87.6 Hypokalemia; E83.51 Hypocalcemia; Z66 Do not resuscitate; M54.9 Dorsalgia, unspecified
CPT/HCPCS: 0241U; 36415; 71045; 74176; 80047; 80053; 83605; 83690; 83880; 84484; 85014; 85025; 85610; 85730; 86850; 86900; 86901; 87040; 87077; 87186; 93005; 93010; 94660; 96361; 96365; 96375; 96376; 99285-25; J2060; J2270; J2310; J2405; J2543; J3010; J7030; J7120